=== PATIENT | female | born 1975 | race Caucasian/White ===

== ENCOUNTER 2016-12-15 11:47 | Inpatient (IN) | payer BC ==
[~2016-12-15] VITALS: Ht 154.9 cm; Wt 107.4 kg
[2016-12-15] VITALS (7 sets, daily range): BP systolic 131–144; BP diastolic 79–95; PULSE 68–72; RESP 14–20; TEMP 97.3–98.1; O2SAT 91–95; Ht 154.9 cm; Wt 107.4 kg
[~2016-12-15 11:47] MED LIST: ALBU8.5H INH; ALPR1TAB7 PO; ASPI-557 PO; CYCL30DR BOTH EYES; DULO30CA2 PO; EPIN0.3P3 INJ; FLUT16SP EA NOSTRIL; LORA0.5T2 PO; LOSA50TA52 PO; METF10002 PO; METH10TA4 PO; MYCO500T PO; PANT40TA25 PO; POTA-81 PO; PROC-14 PO; SUMA100T18 PO; THYR60TA PO
--- OUTSIDE RECORDS SUMMARY | 2016-12-15 12:13 | XMS REPORT | Continuity of Care Document ---
Author Author [facility] Organization [facility] Address Unknown Phone Unavailable Support Name Relationship Address Phone RE GARIBAY MD Caregiver [address] [place] [address] Unavailable ATTILA SAVAGE MD Caregiver [address] [place] [address] Unavailable JUSTINO KNOTT Next Of Kin [address] [place] [address] [address] [place] [address] Insurance Providers Guarantor Dominique Knott Address [address] [place] [address] [address] D[address] [place] [address] * Email [email or web address] Payer [facility] Policy Number [id number] Subscriber's Name Justino Knott Relationship 01 Spouse Group Number [id number] Chief Complaint and Reason for Visit Chief Complaint Fall Reason for Visit [id number] Closed head injury [id number] Problems Active Problems Medical Problem Onset Date Status Allergic reaction to drug Unknown Acute Anxiety Unknown Acute Closed head injury Unknown Acute Depression Unknown Acute Elevated blood pressure Unknown Acute Exacerbation of systemic lupus erythematosus Unknown Acute Exacerbation of systemic lupus erythematosus Unknown Acute Headache Unknown Acute Hives Unknown Acute Hypokalemia due to loss of potassium Unknown Acute Left flank pain Unknown Acute Lupus (systemic lupus erythematosus) Unknown Acute Migraine Unknown Acute Migraine Unknown Acute PTSD (post-traumatic stress disorder) Unknown Acute Panic disorder Unknown Acute Pyelonephritis Unknown Acute SLE (systemic lupus erythematosus) Unknown Acute Scalp contusion Unknown Acute Sjogren's syndrome Unknown Acute UTI (urinary tract infection) Unknown Acute Urticaria Unknown Acute Medications Current Home Medications Medication Dose Units Route Directions Days Qty Instructions Start Date Albuterol Sulfate (Proair Hfa 90 Mcg/Actuation) 8.5 Gm Hfa.aer.ad 1 Puff Inhalation Every 4 Hours as needed for Shortness Of Air 08/24/15 Alprazolam 1 Mg Tablet 1 Tab Oral Four Times Daily Prn 240 Aspirin (Aspir 81) 81 Mg Tablet.dr 81 Mg Oral Bedtime 06/19/14 Cyclosporine (Restasis) 1 Each Droperette 1 Drop Both Eyes Every 12 Hours 02/01/16 Duloxetine Hcl (Cymbalta) 30 Mg Capsule 60 Mg Oral Daily 30 Capsule 02/06/16 Epinephrine (Epipen 2-Kaden) 0.3 Mg/0.3 Ml Auto.injct 0.3 Mg Injection As Needed 12/25/15 Fluticasone Propionate (Fluticasone Prop 50 Mcg/Actuation Nasal [place]) 120 [place]/16 G [place] 2 [place] Each Nostril Twice A Day 04/22/15 Lorazepam 0.5 Mg Tablet 0.5-1 Mg Oral Every 4-6 Hours as needed for Anxiety 06/19/14 Losartan Potassium 50 Mg Tablet 50 Mg Oral Twice A Day 12/25/15 Metformin Hcl 1,000 Mg Tablet 1 Tab Oral Twice Daily With Meals Take one tablet, by mouth, twice daily with meals 01/28/16 Methylphenidate Hcl (Ritalin) 10 Mg Tablet 15 Mg Oral Twice A Day 12/25/15 Mycophenolate Mofetil (Cellcept) 500 Mg Tablet 2 Tab Oral Daily 360 Tablet 02/01/16 Mycophenolate Mofetil (Cellcept) 500 Mg Tablet 2 Tab Oral Bedtime 180 Tablet 02/01/16 Pantoprazole Sodium (Protonix) 40 Mg Tablet.dr 40 Mg Oral Daily 08/26/12 Potassium Chloride 20 Meq Tablet.er 30 Meq Oral Daily 30 Tablet Take 1.5 tablet, by mouth, once daily. 02/01/16 Prochlorperazine Maleate (Compazine) 10 Mg Tablet 10 Mg Oral Four Times Daily 30 Tablet 09/04/16 Sumatriptan Succinate 100 Mg Tablet 100 Mg Oral As Needed as needed for Headache 06/19/14 Thyroid ([place] Thyroid) 60 Mg Tablet 60 Mg Oral Daily 08/26/12 Past Home Medications Medication Directions Ordered Status Celecoxib (Celebrex) 200 Mg Capsule, 200 Mg Oral Daily 08/26/12 Discontinued Cetirizine Hcl (Zyrtec) 10 Mg Tablet, 10 Mg Oral Daily 08/26/12 Discontinued Chlorthalidone 50 Mg Tablet, 50 Mg Oral Give With Breakfast 12/25/15 Discontinued Cholecalciferol (Vitamin D3) (Vitamin D3) 2,000 Unit Tablet, 2000 Mg Oral Daily 12/25/15 Discontinued Ciprofloxacin Hcl 500 Mg Tablet, 1 Tab Oral Every 12 Hours 12/25/15 Discontinued Ciprofloxacin/Ciprofloxa Hcl (Ciprofloxacin Er 500 Mg Tablet) 500 Mg Tbmp.24hr , 1 Tab Oral Twice A Day 04/23/15 Discontinued Clindamycin , 200 Mg Oral Three Times A Day 12/25/15 Discontinued Divalproex Sodium (Depakote Er) 500 Mg Tab.sr.24h, 500 Mg Oral Twice A Day Discontinued Duloxetine Hcl (Cymbalta) 30 Mg Capsule, 1 Cap Oral Daily 02/01/16 Discontinued Ergocalciferol (Vitamin D) 400 Unit Capsule, 0 Oral Daily 08/26/12 Discontinued Furosemide (Lasix) 20 Mg Tablet, 1 Tab Oral Daily 01/28/16 Discontinued Hydroxychloroquine Sulfate (Plaquenil) 200 Mg Tablet, 200 Mg Oral Daily 08/26 Discontinued Ketorolac Tromethamine 10 Mg Tablet, 10 Mg Oral Four Times Daily as needed for Pain 06/19/14 Discontinued Levomilnacipran Hydrochloride (Fetzima) 80 Mg Cap.sa.24h, 80 Mg Oral Daily Discontinued Lidocaine Patch , 1 Patch Topically Daily 01/28/16 Discontinued Meloxicam (Mobic) 7.5 Mg Tablet, 7.5 Mg Oral Daily 12/25/15 Discontinued Metformin Hcl (Glucophage) 850 Mg Tablet, 850 Mg Oral Three Times A Day 08/26 Discontinued Metoprolol Succinate 25 Mg Tab.er.24h, 25 Mg Oral Am 12/25/15 Discontinued Metoprolol Succinate 25 Mg Tab.er.24h, 50 Mg Oral Bedtime 12/25/15 Discontinued Montelukast Sodium (Singulair) 10 Mg Tablet, 10 Mg Oral Bedtime 01/28/16 Discontinued Multivitamins With Iron (Daily Vitamin + Iron) 1 Each Tablet, 1 Tab Oral Daily 12/25/15 Discontinued Oxcarbazepine (Trileptal) 300 Mg Tablet, 300 Mg Oral Twice A Day 02/27/13 Discontinued Paroxetine Mesylate (Brisdelle) 7.5 Mg Capsule, 7.5 Mg Oral Bedtime 04/22/15 Discontinued Pilocarpine Hcl 5 Mg Tablet, 1 Tab Oral Three Times A Day as needed for Dry Mouth 12/25/15 Discontinued Prednisone 1 Mg Tablet, 2.5 Mg Oral Daily 09/23/14 Discontinued Progen , 01/24/13 Discontinued Progesterone , Bedtime 01/24/13 Discontinued Sertraline Hcl (Zoloft) 100 Mg Tablet, 200 Mg Oral Bedtime 08/26/12 Discontinued Sertraline Hcl (Zoloft) 100 Mg Tablet, 0.5 Tab Oral Daily 01/23/13 Discontinued Simvastatin 20 Mg Tablet, 20 Mg Oral Bedtime 08/26/12 Discontinued Topiramate (Topamax) 100 Mg Tablet, 100 Mg Oral Daily 08/26/12 Discontinued Tramadol Hcl 50 Mg Tablet, 1-2 Tab Oral Q6h/0300,0900,1500,2100 as needed for Pain 01/28/16 Discontinued Vitamin E 400 Unit Capsule, 400 Unit Oral Daily 01/23/13 Discontinued Vitamin E 100 Unit Capsule, 0 Oral Daily 08/26/12 Discontinued Zonisamide (Zonegran) 100 Mg Capsule, 200 Mg Oral Bedtime 08/26/12 Discontinued Zonisamide (Zonegran) 100 Mg Capsule, 100 Mg Oral Daily 01/23/13 Discontinued Social History Social History Problem Response Recorded Date/Time Onset Date Status Chewing Tobacco Status No 04/18/2014 1:25pm Not Applicable Not Applicable Hx Substance Use No 09/04/2016 12:17am Not Applicable Not Applicable Hx Alcohol Use No 09/04/2016 12:17am Not Applicable Not Applicable Has the pt used tobacco in the last 12 months No 04/07/2016 7:43am Not Applicable Not Applicable Tobacco Usage none 02/02/2016 1:45pm Not Applicable Not Applicable Query Response Start Date Stop Date Smoking Status Unknown if ever smoked Hospital Discharge Instructions No hospital discharge instructions. Plan of Care Discharge Date 09/04/16 2:40am Disposition 01 DISCHARGED HOME, SELF-CARE Condition at Discharge Improved Instructions/Education Provided Closed Head Injury Prescriptions See Medication Section Referrals RE GARIBAY MD Address: [address] [place], [place] [id number] Additional Instructions/Education Compazine 10 mg 4 times daily as needed for migraine headache/nausea/upset stomach Continue using your routine medications at home If symptoms are not improving, or worsen see your primary doctor for recheck later this week Care Plan and Goals Physician Care Plan Problem: Closed head injury after a fall, SLE flare, migraine headache Goal: Follow up with primary care provider Instructions: Take medications and follow care plan as discussed/written Compazine 10 mg 4 times daily as needed for migraine headache/nausea/upset stomach Continue using your routine medications at home If symptoms are not improving, or worsen see your primary doctor for recheck later this week Functional Status No functional status results. Allergies, Adverse Reactions, Alerts Allergen Type Severity Reaction Status Last Updated Penicillin Allergy Intermediate HIVES Active 01/28/16 Egg Derived Allergy Mild headache Active 01/28/16 Cephalexin Allergy Unknown Active 01/28/16 Sulfamethoxazole Allergy Intermediate RASH Active 01/28/16 Trimethoprim Allergy Intermediate RASH Active 01/28/16 Adhesive Allergy Severe Active 01/28/16 Omeprazole Allergy Unknown N/V Active 01/28/16 Immunizations Query Response on File Recorded Date/Time Hx Influenza Vaccination Y JUL 2015 04/07/16 7:43am Hx Pneumococcal Vaccination Y fall 200804/07/16 7:43am Hx Influenza Vaccination Y JUL 2015 04/07/16 7:43am Influenza Vaccine Hx JUL 2015 09/04/16 1:20am Vital Signs Acute Vital Signs Vital Response Date/Time Temperature (Fahrenheit) 97.9 deg F (96.8 - 99.1) 09/04/2016 12:17am Temperature (Calculated Celsius) 36.35368 degrees C (36.0 - 37.3) 09/04/2016 12:17am Pulse Rate (adult) 71 bpm (60 - 100) 09/04/2016 12:17am Respiratory Rate 18 breaths/min (10 - 20) 09/04/2016 12:17am O2 Sat by Pulse Oximetry 95 % (90 - 100) 09/04/2016 12:17am Blood Pressure 171/77 mm Hg 09/04/2016 12:17am Height (Feet) 5 feet 09/04/2016 12:17am Height (Inches) 2.00 inches 09/04/2016 12:17am Weight (Kilograms) 121.200 kg 09/04/2016 12:17am Body Mass Index (BMI) 48.0 09/04/2016 12:17am Results Laboratory Results Test Name Result Units Flags Reference Collection Date/Time Result Date/ Time Comments White Blood Count 10.3 T/MM3 4.5-11.0 08/30/2016 6:22pm 08/30/2016 6: 39pm Red Blood Count 4.00 M/MM3 4.00-5.20 08/30/2016 6:22pm 08/30/2016 6: 39pm Hemoglobin 11.9 GM/DL L 12-16 08/30/2016 6:08/30/2016 6:39pm Hematocrit 37.5 % 36-46 08/30/2016 6:08/30/2016 6:39pm Mean Corpuscular Volume 93.8 UM3 80-100 08/30/2016 6:08/30/2016 6: 39pm Mean Corpuscular Hemoglobin 29.8 UUG 26-34 08/30/2016 6:2015 6:39pm Mean Corpuscular Hemoglobin Concent 31.7 GM/DL 31-37 08/30/2016 6:08/30/2016 6:39pm RDW Standard Deviation 46.5 FL 36.9-50.2 08/30/2016 6:08/30/2016 6 :39pm Platelet Count 379 T/MM3 130-400 08/30/2016 6:08/30/2016 6:39pm Mean Platelet Volume 9.8 UM3 9.4-12.4 08/30/2016 6:08/30/2016 6: 39pm Neutrophils (%) (Auto) 63.6 % 33-66 08/30/2016 6:08/30/2016 6: 39pm Lymphocytes (%) (Auto) 25.2 % 23-45 08/30/2016 6:08/30/2016 6: 39pm Monocytes (%) (Auto) 8.2 % 0-9.0 08/30/2016 6:08/30/2016 6:39pm Eosinophils (%) (Auto) 2.3 % 0-4 08/30/2016 6:08/30/2016 6:39pm Basophils (%) (Auto) 0.4 % 0-2 08/30/2016 6:08/30/2016 6:39pm Immature Granulocyte % (Auto) 0.3 % 0.0-0.5 08/30/2016 6:2015 6:39pm Absolute Neutrophils (auto) 6.5 T/MM3 1.8-7.7 08/30/2016 6:2015 6:39pm Absolute Lymphocytes (auto) 2.6 T/MM3 1-4.8 08/30/2016 6:2015 6:39pm Absolute Monocytes (auto) 0.8 T/MM3 0-0.8 08/30/2016 6:08/30/2016 6:39pm Absolute Eosinophils (auto) 0.2 T/MM3 0-0.5 08/30/2016 6:pm 2015 6:39pm Absolute Basophils (auto) 0.0 T/MM3 0-0.2 08/30/2016 6:08/30/2016 6:39pm Absolute Immature Granulocyte (auto 0.03 T/MM3 0.00-0.03 08/30/2016 6: 08/30/2016 6:39pm Icterus Index < 2 0-7 08/30/2016 6:08/30/2016 6:43pm Chemistry Specimen Hemolysis < 15 0-25 08/30/2016 6:08/30/2016 6 :43pm 0-25: Specimen Exhibited No Hemolysis. Turbidity < 20 0-20 08/30/2016 6:08/30/2016 6:43pm Sodium Level 144 MEQ/L 134-144 08/30/2016 6:08/30/2016 6:43pm Potassium Level 3.8 MEQ/L 3.6-5 08/30/2016 6:08/30/2016 6:43pm Chloride Level 105 MEQ/L 98-107 08/30/2016 6:08/30/2016 6:43pm Carbon Dioxide Level 27 MEQ/L 22-30 08/30/2016 6:08/30/2016 6: 43pm Anion Gap 12 MEQ/L 5-08/30/2016 6:08/30/2016 6:43pm Blood Urea Nitrogen 14.0 MG/DL 7-08/30/2016 6:08/30/2016 6: 43pm Creatinine 0.7 MG/DL 0.7-1.2 08/30/2016 6:08/30/2016 6:43pm BUN/Creatinine Ratio 20 RATIO 6-08/30/2016 6:08/30/2016 6:43pm Glomerular Filtration Rate Calc 91 08/30/2016 6:08/30/2016 6: 43pm Glucose Level 126 MG/DL H 65-110 08/30/2016 6:22pm 08/30/2016 6:43pm Calculated Osmolality 280 MOSM/KG 261-280 08/30/2016 6:22pm 08/30/2016 6:43pm Calcium Level 9.7 MG/DL 8.4-10.2 08/30/2016 6:22pm 08/30/2016 6:43pm Total Bilirubin 1.00 MG/DL 0.20-1.30 08/30/2016 6:22pm 08/30/2016 6: 43pm Alkaline Phosphatase 47 U/L 38-126 08/30/2016 6:pm 08/30/2016 6:43pm Total Protein 7.0 G/DL 6.3-8.2 08/30/2016 6:pm 08/30/2016 6:43pm Albumin 4.4 G/DL 3.5-5.0 08/30/2016 6:pm 08/30/2016 6:43pm Globulin 2.6 G/DL 2.4-3.6 08/30/2016 6:pm 08/30/2016 6:43pm Albumin/Globulin Ratio 1.7 RATIO 1.1-2.2 08/30/2016 6:pm 08/30/2016 6 :43pm Aspartate Amino Transf (AST/SGOT) 81 U/L H 14-36 08/30/2016 6:pm 08/30 6:43pm Alanine Aminotransferase (ALT/SGPT) 136 U/L H 9-52 08/30/2016 6:22pm 6:43pm C-Reactive Protein < 5.0 MG/L 0-9 08/30/2016 6:22pm 08/30/2016 6:43pm Reason Tests Not Done REFERENCE LAB ISSUE 08/31/2016 4:12pm 2015 4:13pm Tests Not Done THIOPURINE METHYLTRA 08/31/2016 4:12pm 08/31/2016 4: 13pm Specimen Comment ([facility]) LAB TO RECOLLECT 08/31/2016 4:12pm 2015 4:13pm Anti-Double Strand DNA Antibody 3 U/mL 0-99 08/30/2016 6:22pm 2015 10:37pm Anti-Nuclear Antibody Interpret see below 08/30/2016 6:22pm 2015 10:37pm <100 U/mL: Negative 100-120 U/mL: Indeterminate >120 U/mL: Positive DS DNA Autoantibody performed at [facility], [address] [place] [address] Caption Writer Marycruz Delatorre DO Complement C3 186 mg/dL H 79-152 08/30/2016 6:22pm 08/31/2016 7:20pm C3 [place] [address] Caption Writer Marycruz Delatorre DO Complement C4 26 mg/dL 18-55 08/30/2016 6:22pm 08/31/2016 7:20pm C4 [place] [address] Caption Writer Marycruz Delatorre DO Erythrocyte Sedimentation Rate 7 mm/h 0-23 08/30/2016 6:22pm 2015 7:13pm Sedimentation Rate performed at [facility], [address] [place] [address] Caption Writer Marycruz Delatorre DO Procedures No known history of procedures. Encounters Encounter Location Arrival/Admit Date Discharge/Depart Date Attending Provider Departed Emergency Room [facility] 09/04/16 12:17am 09/04/16 2: 40am ATTILA SAVAGE MD [facility] 08/30/16 5:53pm LORRI OCHOA Recent Diagnosis
--- OUTSIDE RECORDS SUMMARY | 2016-12-15 12:13 | XMS REPORT | Continuity of Care Document ---
Author Author [facility] Address Unknown Phone Unavailable Allergies Active Description Code Type Severity Reaction Onset Reported/Identified Relationship to Patient Clinical Status Yes PCN Drug Allergy N/A N/A Yes PRILOSEC [id number] Drug Allergy N/A N/A Yes SULFA Drug Allergy N/A N/A Medications Medication Packaging Start Date Stop Date Route Dosage Sig [id number] 01/14/2014 ORAL T.I.D. [id number] 03/31/2014 ORAL three times daily [id number] 11/13/2014 ORAL twice daily [id number] 05/10/2015 ORAL daily Problems Procedures Results Encounters ACCT No. Visit Date/Time Discharge Status Pt. Type Provider Facility Loc./Unit Complaint [id number] 12/06/2016 09:44:08 12/06/2016 09:44:08 DIS Outpatient [id number] 12/04/2016 16:36:13 12/04/2016 16:36:13 DIS Outpatient [id number] 11/09/2016 10:39:07 11/09/2016 10:39:08 DIS Outpatient [id number] 11/07/2016 08:42:09 11/07/2016 08:42:09 DIS Outpatient [id number] 11/06/2016 08:37:24 11/06/2016 08:37:24 DIS Outpatient [id number] 06/06/2016 01:30:06 06/06/2016 01:30:06 ACT Outpatient [id number] 06/06/2016 01:29:11 06/06/2016 01:29:11 ACT Outpatient [id number] 06/06/2016 01:24:33 06/06/2016 01:24:33 ACT Outpatient [id number] 06/06/2016 01:24:30 06/06/2016 01:24:30 ACT Outpatient [id number] 06/06/2016 01:24:28 06/06/2016 01:24:28 ACT Outpatient [id number] 06/06/2016 01:24:01 06/06/2016 01:24:01 ACT Outpatient [id number] 06/06/2016 01:24:00 06/06/2016 01:24:00 ACT Outpatient [id number] 06/06/2016 01:07:19 06/06/2016 01:07:20 ACT Outpatient [id number] 06/05/2016 17:46:42 06/05/2016 17:46:42 ACT Outpatient [id number] 06/05/2016 17:42:46 06/05/2016 17:42:46 ACT Outpatient [id number] 05/27/2015 13:55:22 05/27/2015 13:55:23 DIS Outpatient [id number] 05/27/2015 13:55:03 05/27/2015 13:55:04 DIS Outpatient [id number] 05/27/2015 13:54:22 05/27/2015 13:54:24 DIS Outpatient [id number] 05/27/2015 13:54:15 05/27/2015 13:54:17 DIS Outpatient [id number] 05/11/2015 12:13:48 05/11/2015 23:59:59 CLS Outpatient [id number] 05/10/2015 16:07:14 05/10/2015 16:07:15 DIS Outpatient [id number] 05/10/2015 15:55:29 05/10/2015 15:55:33 DIS Outpatient [id number] 05/10/2015 15:20:44 05/10/2015 15:20:44 DIS Outpatient [id number] 05/10/2015 15:11:39 05/10/2015 15:11:39 DIS Outpatient [id number] 11/09/2016 13:24:28 DIS Outpatient [id number] 11/08/2016 13:21:56 DIS Outpatient [id number] 11/08/2016 12:04:15 DIS Outpatient [id number] 11/08/2016 11:58:00 Document Registration [id number] 11/08/2016 11:56:58 DIS Outpatient [id number] 11/08/2016 11:53:44 DIS Outpatient [id number] 11/08/2016 11:53:43 DIS Outpatient [id number] 11/08/2016 11:53:28 DIS Outpatient [id number] 11/08/2016 11:18:37 DIS Outpatient [id number] 11/06/2016 09:48:51 Document Registration [id number] 11/06/2016 09:15:08 Document Registration [id number] 11/03/2016 16:16:10 DIS Outpatient [id number] 11/03/2016 12:14:52 DIS Outpatient [id number] 11/03/2016 11:12:21 DIS Outpatient [id number] 11/03/2016 10:15:00 Document Registration [id number] 11/03/2016 10:11:43 DIS Outpatient [id number] 11/03/2016 10:01:27 DIS Outpatient [id number] 11/03/2016 10:01:05 DIS Outpatient [id number] 11/03/2016 09:59:39 DIS Outpatient [id number] 11/03/2016 09:59:19 DIS Outpatient [id number] 11/03/2016 09:58:04 DIS Outpatient [id number] 11/02/2016 14:52:07 DIS Outpatient [id number] 11/01/2016 17:54:05 DIS Outpatient [id number] 06/05/2016 17:16:04 Document Registration [id number] 06/05/2016 17:11:00 Document Registration [id number] 05/11/2015 12:20:35 Document Registration [id number] 05/11/2015 10:50:23 Document Registration [id number] 05/11/2015 08:41:15 Document Registration [id number] 05/10/2015 16:07:21 Document Registration [id number] 05/10/2015 16:07:18 Document Registration [id number] 05/10/2015 16:06:40 Document Registration [id number] 05/10/2015 16:06:37 Document Registration [id number] 05/10/2015 16:06:34 Document Registration [id number] 05/10/2015 16:06:31 Document Registration [id number] 05/10/2015 16:06:27 Document Registration [id number] 05/10/2015 16:06:24 Document Registration [id number] 05/10/2015 16:06:20 Document Registration [id number] 05/10/2015 16:06:05 Document Registration [id number] 05/10/2015 16:05:40 Document Registration [id number] 05/10/2015 16:05:15 Document Registration [id number] 05/10/2015 16:05:04 Document Registration [id number] 05/10/2015 16:04:48 Document Registration [id number] 05/10/2015 15:27:00 Document Registration [id number] 05/10/2015 15:26:00 Document Registration [id number] 11/13/2014 12:48:25 Document Registration [id number] 11/13/2014 08:25:56 Document Registration
--- OUTSIDE RECORDS SUMMARY | 2016-12-15 12:13 | XMS REPORT | Continuity of Care Document ---
Author Author [facility] Organization [facility] Address Unknown Phone Unavailable Support Name Relationship Address Phone RE GARIBAY MD Caregiver [address] [place] [address] SANTY GOLD MD Caregiver [facility] [address] [place] [address] [phone] JUSTINO KNOTT Next Of Kin [address] [place] [address] [address] [place] [address] Insurance Providers Payer Name Policy Number Subscriber Name Relationship [facility] [id number] Justino Knott 01 Spouse Advance Directives Directive Response Recorded Date/Time Dr Medina Resuscitation Status Full Code 06/19/14 7:28am Resuscitation Documents on File No 06/19/14 8:33am Problems Medical Problems Problem Onset Date Status Migraine Unknown Active Elevated blood pressure Unknown Active Migraine Unknown Active Medications Medication Dose Route Sig Days/Qty Instructions Order Date Discontinued Date Status Topiramate 100 Mg PO DAILY 08/26/12 01/23/13 Discontinued Zonisamide 200 Mg PO BEDTIME 08/26/12 02/27/13 Discontinued Sertraline Hcl 200 Mg PO BEDTIME 08/26/12 12/03/13 Discontinued Simvastatin 20 Mg PO BEDTIME 08/26/12 09/06/12 Discontinued Duloxetine Hcl 60 Mg PO DAILY 08/26/12 Active Metformin Hcl 850 Mg PO THREE TIMES A DAY 08/26/12 06/30/13 Discontinued Celecoxib 200 Mg PO DAILY 08/26/12 09/06/12 Discontinued Hydroxychloroquine Sulfate 200 Mg PO DAILY 3 tabs, equals 600mg daily 08/26/12 01/23/13 Discontinued Thyroid 75 Mg PO DAILY 08/26/12 Active Vitamin E 0 PO DAILY 08/26/12 09/06/12 Discontinued Ergocalciferol 0 PO DAILY 08/26/12 09/06/12 Discontinued Hydrocodone Bit/Acetaminophen 1 Udtab PO NEEDED 08/26/12 Active Cetirizine Hcl 10 Mg PO DAILY 08/26/12 09/06/12 Discontinued Pantoprazole Sodium 40 Mg PO TWICE A DAY 08/26/12 Active Sertraline Hcl 0.5 Tab PO DAILY 01/23/13 12/03/13 Discontinued Zonisamide 100 Mg PO DAILY 01/23/13 02/27/13 Discontinued Ondansetron Hcl 4 Mg PO Every 8 Hours 01/23/13 Active Vitamin E 400 Unit PO DAILY 01/23/13 06/30/13 Discontinued Prednisone 5 Mg PO DAILY 01/23/13 Active Orphenadrine Citrate 100 Mg PO BID PRN 01/23/13 Active Celecoxib 200 Mg PO BEDTIME 01/23/13 Active [Progen] 01/24/13 01/24/13 Discontinued [Progesterone] BEDTIME 01/24/13 02/27/13 Discontinued Oxcarbazepine 300 Mg PO TWICE A DAY 02/27/13 06/30/13 Discontinued Divalproex Sodium 500 Mg PO TWICE A DAY 06/30/13 12/03/13 Discontinued Verapamil Hcl 80 Mg PO THREE TIMES A DAY 12/03/13 Active Metformin Hcl 850 Mg PO THREE TIMES A DAY 12/03/13 Active [Fetzima] 80 Mg DAILY 04/18/14 Active Lisinopril/Hydrochlorothiazide 20-25 Mg PO DAILY 06/19/14 Active Cetirizine HCl 1-2 Cap PO DAILY PRN ALLERY SYMPTOMS 06/19/14 Active Niacin 1,000 Mg PO BEDTIME 06/19/14 Active Aspirin 1 Tab PO BEDTIME 06/19/14 Active Estradiol 0.1 Mg TD TWICE A WEEK 06/19/14 Active Progesterone 0.1 Mg PO TWICE A DAY 06/19/14 Active Cholecalciferol (Vitamin D3) 2,000 Unit PO BEDTIME 06/19/14 Active Lorazepam 0.5-1 Mg PO EVERY 4-6 HOURS PRN ANXIETY 06/19/14 Active Sumatriptan Succinate 100 Mg PO For HEADACHE 06/19/14 Active Ketorolac Tromethamine 1 Tab PO FOUR TIMES DAILY PRN PAIN 06/19/14 Active Social History Social History Problem Response Recorded Date/Time Smoking Status Unknown if ever smoked 04/18/2014 1:25pm Chewing Tobacco Status No 04/18/2014 1:25pm Hx Substance Use No 06/19/2014 10:24am Hx Alcohol Use No 06/19/2014 10:24am Has the pt used tobacco in the last 12 months No 06/19/2014 10:24am Query Response Start Date Stop Date Smoking Status Never smoker Hospital Discharge Instructions No hospital discharge instructions. Plan of Care No plan of care. Functional Status Query Response Date Recorded Physical Hygiene Self April 18, 2014 1:25pm Ambulation Self April 18, 2014 1:25pm Mental Status Alert April 18, 2014 3:29pm Physical Hygiene Self April 18, 2014 1:25pm Ambulation Self April 18, 2014 1:25pm Allergies, Adverse Reactions, Alerts Allergen Type Severity Reaction Status Last Updated Penicillin Allergy Intermediate HIVES Active 06/19/14 Egg Derived Allergy Mild headache Active 06/19/14 Adhesive Allergy Severe Active 06/19/14 Omeprazole Allergy Unknown N/V Active 06/19/14 Immunizations Name Given Type Hx Influenza Vaccination Y JUL 2013 Historical Hx Pneumococcal Vaccination Y 2008 Historical Hx Influenza Vaccination Y JUL 2013 Historical Vital Signs Acute Vital Signs Vital Response Date/Time Temperature (Fahrenheit) 97.6 deg F (96.8 - 99.1) Temperature (Calculated Celsius) 36.24268 degrees C (36.0 - 37.3) Temperature Source Oral Pulse Rate (adult) 88 bpm (60 - 100) Respiratory Rate 16 breaths/min (10 - 20) O2 Sat by Pulse Oximetry 98 % (90 - 100) Oxygen Delivery Method Room Air Blood Pressure 118/69 mm Hg Blood Pressure Source Automatic Cuff Height 5 ft 2 in Weight 259 lb Body Mass Index 47.0 kg/m^2 Results Test Source Date Result Interp. Ref. Range Comments Prothromb Time International Ratio June 19, 2014 8:48am 0.89 N 0.81 -1.09 THERAPUTIC RANGE=2.00-3.00 FOR ANTI-THROMBOSIS THERAPUTIC RANGE=2.50- 3.50 FOR IMPLANTED VALVE Absolute Reticulocyte Count March 20, 2014 11:40am 0.1266 T/MM3 H 0.0300- 0.0900 Alanine Aminotransferase (ALT/SGPT) April 18, 2014 1:25pm 206 U/L H 9-52 Albumin April 18, 2014 1:25pm 4.2 G/DL N 3.5-5.0 Albumin/Globulin Ratio April 18, 2014 1:25pm 1.8 RATIO N 1.1-2.2 Alkaline Phosphatase April 18, 2014 1:25pm 71 U/L N 38-126 [id number] March 20, 2014 11:40am 131 mg/dL - Reference Range :100 - 190 Test Performed by: [place] [address] Foreign Correspondent: Saqib Benson III, M.D. [id number]-[id number] [place] [address] [employer]ded Firmware Engineer Marcelino Sanchez MD Anion Gap April 18, 2014 1:25pm 13 MEQ/L N 5-15 Anti-Double Strand DNA Antibody September 06, 2012 10:08pm Ref lab rpt scanned - --- 09/10/12 0703 ---ANTIDS previously reported as: SENT OUT Anti-Smooth Muscle Antibody March 20, 2014 11:40am Negative - Test Performed by:[place] [address] Foreign Correspondent: Saqib Benson III, M.D. Anti-Smooth Muscle [place] [address] [employer]ded Firmware Engineer Marcelino Sanchez MD Aspartate Amino Transf (AST/SGOT) April 18, 2014 1:25pm 148 U/L H 14-36 BUN/Creatinine Ratio April 18, 2014 1:25pm 25 RATIO N 6-26 Band Neutrophils # September 06, 2012 10:08pm 0.4 T/MM3 - Band Neutrophils % September 06, 2012 10:08pm 2.0 % N 0-6 Basophils # (Auto) April 18, 2014 1:25pm 0.0 T/MM3 N 0-0.2 Basophils (%) (Auto) April 18, 2014 1:25pm 0.4 % N 0-2 Blood Urea Nitrogen April 18, 2014 1:25pm 15.0 MG/DL N 7-17 C-Reactive Protein April 18, 2014 1:25pm 5.7 MG/L N 0-9 CSF Color December 03, 2013 2:40pm Colorless - CSF Glucose December 03, 2013 2:40pm 62 MG/DL N 40-70 CSF Lymphocytes December 03, 2013 2:40pm 90 % - CSF Monocytes December 03, 2013 2:40pm 5 % - CSF Neutrophils December 03, 2013 2:40pm 5 % - CSF RBC December 03, 2013 2:40pm 16 /MM3 H 0-0 CSF Total Nucleated Cell Count December 03, 2013 2:40pm 4 /MM3 N 0-5 CSF Total Protein December 03, 2013 2:40pm 11 MG/DL L 12-60 CSF Turbidity December 03, 2013 2:40pm Clear - Calcium Level April 18, 2014 1:25pm 9.2 MG/DL N 8.4-10.2 Calculated Osmolality April 18, 2014 1:25pm 271 MOSM/KG N 261-280 Carbon Dioxide Level April 18, 2014 1:25pm 23 MEQ/L N 22-30 Ceruloplasmin March 20, 2014 11:40am 23.5 mg/dL - Reference Range: 16.0 - 45.0 Test Performed by: [place] [address] Foreign Correspondent: Saqib Benson III, M.D. Ceruloplasmin, S performed at [facility], [address] [place] [address] Embedded Firmware Engineer Marcelino Sanchez MD Chemistry Specimen Hemolysis April 18, 2014 1:25pm < 15 0-25 0-25: No Hemolysis.26-70: Slight Hemolysis - can falsely elevate K and Urine Protein. 71-285: Moderate Hemolysis - can falsely elevate K, Troponin I, CA 19-9, PTH, CSF GLucose, and Urine Protein, and can falsely decrease Phenytoin. 286-999: Gross Hemolysis - can falsely elevate K, Troponin I, CA 19-9, PTH, CSF Glucose, and Urine Protine, and can falsely decrease Phenytoin. Recommend specimen recollection. Chloride Level April 18, 2014 1:25pm 104 MEQ/L N 98-107 Cholesterol Level May 13, 2010 6:24am 224 MG/DL H 132-199 Cholesterol/HDL Ratio May 13, 2010 6:24am 4.5 RATIO H 0-4.0 Creatinine April 18, 2014 1:25pm 0.6 MG/DL L 0.7-1.2 D-Dimer June 09, 2011 2:34pm 152 NG/ML N 0-230 <224 NG/ML= PRESUMPTIVE NEGATIVE FOR PE OR DVT>224 NG/ML=ADDITIONAL EVALUATION FOR PE OR DVT RECOMMENDED Eosinophils # (Auto) April 18, 2014 1:25pm 0.4 T/MM3 N 0-0.5 Eosinophils (%) (Auto) April 18, 2014 1:25pm 4.2 % H 0-4 Erythrocyte Sedimentation Rate April 18, 2014 1:25pm 6 MM/HR N 0-20 Ferritin June 10, 2014 9:01am 27.7 NG/ML N 6-137 Follicle Stimulating Hormone May 13, 2010 6:24am 13.4 MIU/ML - Male : 1.0 - 42.5 Vince/mLFemale Ovulating: Follicular Phase: 2.7 - 15.4 mIU/mL, Peak: 3.9 - 22.0 Vince/mL, Luteal phase: 1.0 - 14.4 mIU/mL, Postmenopausal: 25.0 - 160.0 mIU/mL Free Thyroxine April 29, 2009 4:34pm 0.99 NG/DL N 0.78-2.[address] GARIBAY [id number] Free Triiodothyronine April 29, 2009 4:34pm 3.84 PG/ML N 2.77-5.[address] GARIBAY [id number] Globulin April 18, 2014 1:25pm 2.4 G/DL N 2.4-3.6 Glomerular Filtration Rate Calc April 18, 2014 1:25pm 111 - Glucometer December 05, 2013 10:34am 82 mg/dL N 65-110 Glucose 1 Hour April 09, 2008 9:45am 3600 70 - Glucose 2 Hour April 09, 2008 9:45am 7200 76 - Glucose Level April 18, 2014 1:25pm 116 MG/DL H 65-110 HDL Cholesterol Direct May 13, 2010 6:24am 50 MG/DL N 40-60 Helicobacter pylori Antibodies September 08, 2012 5:15am Negative - Hematocrit April 18, 2014 1:25pm 39.9 % N 36-46 Hemoglobin April 18, 2014 1:25pm 13.2 GM/DL N 12-16 Hepatitis A IgM Antibody March 20, 2014 11:40am Negative - Hepatitis B Core IgM Antibody March 20, 2014 11:40am Negative - Hepatitis B Surface Ab Concentrat March 20, 2014 11:40am Negative - Hepatitis B Surface Antigen March 20, 2014 11:40am Negative - Hepatitis C Antibody March 20, 2014 11:40am Negative - Human Chorionic Gonadotropin, Qual February 28, 2013 6:10am Negative - COMMENT TO SCU AT 0530 Icterus Index April 18, 2014 1:25pm < 2 0-7 Immature Granulocyte # (Auto) April 18, 2014 1:25pm 0.03 T/MM3 N 0.00- 0.03 Immature Granulocyte % (Auto) April 18, 2014 1:25pm 0.3 % N 0.0-0.5 Immature Reticulocyte Fraction March 20, 2014 11:40am 11.7 % N 3.3-14.5 Iron Level June 10, 2014 9:01am 112 UG/DL N 37-170 LDL Cholesterol, Calculated May 13, 2010 6:24am 132.8 N 66-159 Lab Scanned Report June 18, 2014 8:44pm LAB TEST FORM REQUEST - Luteinizing Hormone May 13, 2010 6:24am 4.3 MIU/ML - Male: 1.7 - 11.2 mIU/mLFemale Ovulating: Follicular Phase: 1.7 - 13.3 mIU/mL, Peak: 4.1 - 68.7 mIU/mL, Luteal phase: 0.5 - 19.8 mIU/mL, Postmenopausal: 14.4 - 62.2 mIU/mL Lymphocytes # (Auto) April 18, 2014 1:25pm 1.3 T/MM3 N 1-4.8 Lymphocytes # (Manual) September 13, 2012 5:20am 5.8 T/MM3 H 1-4.8 Lymphocytes % (Manual) September 13, 2012 5:20am 28.0 % N 23-45 Lymphocytes (%) (Auto) April 18, 2014 1:25pm 14.4 % L 23-45 Magnesium Level September 14, 2012 9:05am 2.3 MG/DL N 1.6-2.3 Mean Corpuscular Hemoglobin April 18, 2014 1:25pm 30.9 UUG N 26-34 Mean Corpuscular Hemoglobin Concent April 18, 2014 1:25pm 33.1 GM/DL N 31 -37 Mean Corpuscular Volume April 18, 2014 1:25pm 93.4 UM3 N 80-100 Mean Platelet Volume April 18, 2014 1:25pm 10.0 UM3 N 9.4-12.4 Metamyelocytes # September 11, 2012 4:45am 0.3 T/MM3 - Metamyelocytes % September 11, 2012 4:45am 2.0 % H 0-0 Monocytes # (Auto) April 18, 2014 1:25pm 0.8 T/MM3 N 0-0.8 Monocytes # (Manual) September 13, 2012 5:20am 0.8 T/MM3 N 0-0.8 Monocytes % (Manual) September 13, 2012 5:20am 4.0 % N 0-9.0 Monocytes (%) (Auto) April 18, 2014 1:25pm 9.3 % H 0-9.0 Myelocytes # September 11, 2012 4:45am 0.2 T/MM3 - Myelocytes % September 11, 2012 4:45am 1.0 % H 0-0 Neutrophils # (Auto) April 18, 2014 1:25pm 6.4 T/MM3 N 1.8-7.7 Neutrophils # (Manual) September 13, 2012 5:20am 14.1 T/MM3 H 1.8-7.7 Neutrophils % (Manual) September 13, 2012 5:20am 68.0 % H 33-66 Neutrophils (%) (Auto) April 18, 2014 1:25pm 71.4 % H 33-66 Percent Iron Saturation June 10, 2014 9:01am 29 % N 9-55 Percent Reticulocyte Count March 20, 2014 11:40am 2.9 % H 0.6-1.7 Platelet Count June 19, 2014 8:48am 374 T/MM3 N 130-400 COMMENT WILL CALL WHEN HERE Potassium Level April 18, 2014 1:25pm 3.5 MEQ/L L 3.6-5 Prolactin May 13, 2010 6:24am 8.4 NG/ML - Male: 3.3 - 20.8 ng/ mLFemale: Premenopausal: 2.1 - 47.6 ng/mL, Postmenopausal: 0 - 41.4 ng/mL RDW Standard Deviation April 18, 2014 1:25pm 45.1 FL N 36.9-50.2 Reactive Lymphocytes # September 11, 2012 4:45am 0.5 T/MM3 H 0-0 Reactive Lymphocytes % September 11, 2012 4:45am 3.0 % H 0-0 Red Blood Count April 18, 2014 1:25pm 4.27 M/MM3 N 4.00-5.20 Reticulocyte Hgb Content (CHr) March 20, 2014 11:40am 37.0 PG H 30.8- 36.6 Sodium Level April 18, 2014 1:25pm 140 MEQ/L N 134-144 Thyroid Stimulating Hormone (TSH) December 03, 2013 5:05pm 0.92 MIU/L N 0.47-4.68 Total Bilirubin April 18, 2014 1:25pm 0.70 MG/DL N 0.20-1.30 Total Iron Binding Capacity June 10, 2014 9:01am 390 UG/DL N 261-497 Total Protein April 18, 2014 1:25pm 6.6 G/DL N 6.3-8.2 Triglycerides Level May 13, 2010 6:24am 206 MG/DL H 35-135 Turbidity April 18, 2014 1:25pm 41 H 0-20 0-21: Turbidity not present.22 -999: Turbidity present - Gross turbidity can falsely decrease Lipase and Triglycerides. Urinalysis Comment June 30, 2013 5:50pm Microscopic not ind. - Has specimen been collected/obtained? Y Urine Bacteria April 18, 2014 2:04pm 1+ H - Has specimen been collected/ obtained? Y Urine Bilirubin April 18, 2014 2:04pm Negative - Has specimen been collected/obtained? Y Urine Blood April 18, 2014 2:04pm 1+ H - Has specimen been collected/ obtained? Y Urine Collection Type April 18, 2014 2:04pm Voided-not cc-midstr - Has specimen been collected/obtained? Y Urine Color April 18, 2014 2:04pm Yellow - Has specimen been collected /obtained? Y Urine Culture Indicated April 18, 2014 2:04pm Cult not indicated - Has specimen been collected/obtained? Y Urine Glucose (UA) April 18, 2014 2:04pm Negative - Has specimen been collected/obtained? Y Urine Glucose 1 Hour April 09, 2008 9:45am 3600 Negative - Urine Glucose 2 Hour April 09, 2008 9:45am 7200 Negative - Urine Ketones April 18, 2014 2:04pm Negative - Has specimen been collected/obtained? Y Urine Leukocyte Esterase April 18, 2014 2:04pm Negative - Has specimen been collected/obtained? Y Urine Microscopic Not Indicated September 07, 2012 1:48am Not indicated - Has specimen been collected/obtained? Y Urine Mucus April 18, 2014 2:04pm Present - Has specimen been collected/obtained? Y Urine Nitrite April 18, 2014 2:04pm Negative - Has specimen been collected/obtained? Y Urine Test January 24, 2013 11:20am Negative - Has specimen been collected/obtained? YCOMMENT RUN HERB PLEASE.THANKS Urine Protein April 18, 2014 2:04pm 1+ H - Has specimen been collected/ obtained? Y Urine RBC April 18, 2014 2:04pm 1-3 /HPF - Has specimen been collected /obtained? Y Urine Specific [place] April 18, 2014 2:04pm 1.025 - Has specimen been collected/obtained? Y Urine Squamous Epithelial Cells April 18, 2014 2:04pm 5-10 - Has specimen been collected/obtained? Y Urine Turbidity April 18, 2014 2:04pm Clear - Has specimen been collected/obtained? Y Urine Urobilinogen April 18, 2014 2:04pm 0.2 EU/DL - Has specimen been collected/obtained? Y Urine WBC April 18, 2014 2:04pm 0-1 /HPF - Has specimen been collected /obtained? Y Urine pH April 18, 2014 2:04pm 5.0 - Has specimen been collected/ obtained? Y VLDL Cholesterol May 13, 2010 6:24am 41.2 MG/DL H 0-28 Vitamin D 25-Hydroxy May 13, 2010 6:24am Send out - White Blood Count April 18, 2014 1:25pm 9.0 T/MM3 N 4.5-11.0 Blood Culture Blood September 06, 2012 10:08pm NO GROWTH AFTER 5 DAYS Gram Stain Cerebral Spinal Fluid December 03, 2013 5:00pm Viral Culture Csf December 04, 2013 2:40pm Name: TG KNOTT Unit #: [id number] : 1975 Sex: F Loc / Svc: SRG DOS: 06/19/14 Signed Report #: [id number] DIAGNOSTIC IMAGING REPORT TYPE OF EXAM: US GUIDED NEEDLE BX Dictated By: SANTY GOLD MD ULTRASOUND-GUIDED LIVER BIOPSY: MONITORED IV SEDATION: The patient was given 2 mg of Versed and 50 mcg of fentanyl IV. This was administered by the dental laboratory supervisor nurse. The dental laboratory supervisor nurse did continuous monitoring during the procedure in radiology and also after the procedure in her recovery room. Monitoring consisted of heart rate, pulse oximetry, and blood pressure. There is no complication. After discussing the details of the procedure, including the risks, the patient wished to proceed. Informed consent was then obtained. A preprocedural pause was performed to confirm the correct patient and procedure. Sedation was administered as noted above. Then, using aseptic technique, local lidocaine anesthetic, and ultrasound guidance, an 18-gauge biopsy needle was directed to the left lobe of the liver via an anterior approach. Three 22 mm throw passes with a biopsy needle were obtained and the samples were sent to lab for the requested studies. The procedure was completed without complication. Following this, hemostasis was obtained and the patient was taken to the recovery room for observation. The patient tolerated this procedure well. Impression: Technically successful ultrasound guided left lobe liver biopsy. Santy Hoyos RPA/ performed this under my personal supervision. . Procedures Procedure Status Date Provider(s) THER/PROPH/DIAG INJ IV PUSH completed 04/18/14 TX/PRO/DX INJ NEW DRUG ADDON completed 04/18/14 TX/PRO/DX INJ NEW DRUG ADDON completed 04/18/14 TX/PRO/DX INJ SAME DRUG ELECTRIC BLASTING CAP ASSEMBLER completed 04/18/14 TX/PRO/DX INJ NEW DRUG ADDON completed 04/18/14 HYDRATE IV INFUSION ADD-ON completed 04/18/14 Encounters Encounter Location Date/Time Departed [facility] 06/19/14 7:57am Registered [facility] 06/18/14 12:25pm Registered [facility] 06/10/14 8:53am Registered [facility] 05/18/14 4:17pm Departed Emergency Room [facility] 04/18/14 12:37pm
--- OUTSIDE RECORDS SUMMARY | 2016-12-15 12:14 | XMS REPORT | Continuity of Care Document ---
Author Author [facility] Organization [facility] Address Unknown Phone Unavailable Support Name Relationship Address Phone RE GARIBAY MD Caregiver [address] [place] [address] SARTHAK VALENZUELA MD Caregiver [address] [place] [address] [place] [phone] JUSTINO KNOTT Next Of Kin [address] [place] [address] [address] [place] [address] Insurance Providers Payer Name Policy Number Subscriber Name Relationship [facility] [id number] Justino Knott 01 Spouse Advance Directives Directive Response Recorded Date/Time Advanced Directives Type None 09/23/14 4:06am Ordered Resuscitation Status Full Code 09/23/14 3:40am Resuscitation Documents on File No 09/23/14 4:22am Chief Complaint and Reason for Visit Chief Complaint PYLONEPHRITIS,LEFT FLANK PAIN, NASEA, DEHYDRATION Reason for Visit Exacerbation of systemic lupus erythematosus Pyelonephritis Left flank pain Exacerbation of systemic lupus erythematosus Problems Medical Problems Problem Onset Date Status Migraine Unknown Active Elevated blood pressure Unknown Active Migraine Unknown Active Exacerbation of systemic lupus erythematosus Unknown Active Pyelonephritis Unknown Active Left flank pain Unknown Active Exacerbation of systemic lupus erythematosus Unknown Active Medications Medication Dose Route Sig [...] 400 Unit PO DAILY 01/23/13 06/30/13 Discontinued Orphenadrine Citrate 100 Mg PO BID PRN [...] Active [Fetzima] 80 Mg DAILY 04/18/14 Active Cetirizine HCl 1-2 Cap PO DAILY [...] FOUR TIMES DAILY PRN PAIN 06/19/14 Active Prednisone 2 Mg PO DAILY 09/23/14 Active Labetalol HCl 1 Tab PO TWICE A DAY 09/23/14 Active Mycophenolate Mofetil 250 Mg PO DAILY 09/23/14 Active Phenazopyridine HCl 200 Mg PO THREE TIMES A DAY Take 1 tab, by mouth, 3 times a day AFTER meals. 09/23/14 Active Social History Social History Problem Response Recorded Date/Time Chewing Tobacco Status No 04/18/2014 1:25pm Hx Substance Use No 09/23/2014 12:00am Hx Alcohol Use No 09/23/2014 12:00am Has the pt used tobacco in the last 12 months No 09/23/2014 4:25am Tobacco Usage none 04/18/2014 1:48pm Query Response Start Date Stop Date Smoking Status Unknown if ever smoked Hospital Discharge Instructions Instructions: Care Instructions: Reason for Hospitalization: PYELONEPHRITIS, LEFT FLANK PAIN I was in the hospital because (patient own words): PAIN, LUPUS FLARE AND A UTI Discharge Diet: regular Discharge Activity: as tolerated Follow Up Appointments: FOLLOW UP IN ONE WEEK ON September AT 9:[address] GARIBAY Condition at time of discharge: Good Congenital Heart Disease Screening Result: Pass REPORTS HAS A WALKER FROM [facility] Notify Physician If: fever greater than 101, chest pain, shortness of breath, or calf pain Condition at time of discharge: Good 1. Call your surgeon if you are having problems relating to your surgery at [phone]. 2. Problems such as: Temp above 101.5 degrees You develop redness, excessive swelling of the incision, increasing pain or excessive foul smelling drainage. 3. If the office is closed, call [facility] at [phone] and have your Surgeon paged. Condition at time of discharge: Good rate >100, confusion, or persistent nausea/vomitting. 2.Severe pain, swelling, redness, or warmth in either of your legs. 3.During office hours, call [phone] 4. After hours, please call [facility] at [phone], and have the centrifuge operator page your Surgeon IN THE EVENT OF AN EMERGENCY, seek medical care at the nearest Emergency Room Condition at time of discharge: Good Plan of Care Discharge Date 09/24/14 12:40pm Disposition 01 DISCHARGED HOME, SELF-CARE Instructions/Education Provided DI for Dehydration -- Adult DI for Urinary Tract Infection (UTI) Prescriptions See Medications Section Functional Status Query Response Date Recorded Physical Hygiene Self September 24, 2014 11:35am Disabilities Visual September 24, 2014 11:35am Devices Used Glasses September 24, 2014 11:35am Dressing Self September 24, 2014 11:35am Ambulation Self April 18, 2014 1:25pm Diet Self September 24, 2014 11:35am Mental Status Alert April 18, 2014 3:29pm Disabilities Visual September 24, 2014 11:35am Devices Used Glasses September 24, 2014 11:35am Physical Hygiene Self September 24, 2014 11:35am Dressing Self September 24, 2014 11:35am Ambulation Self April 18, 2014 1:25pm Diet Self September 24, 2014 11:35am Allergies, Adverse Reactions, Alerts Allergen Type Severity Reaction Status Last Updated Penicillin Allergy Intermediate HIVES Active 09/22/14 Egg Derived Allergy Mild headache Active 09/22/14 Adhesive Allergy Severe Active 09/22/14 Omeprazole Allergy Unknown N/V Active 09/22/14 Immunizations Name Given Type Hx Influenza Vaccination Y JUL 2014 Historical Hx Pneumococcal Vaccination Y 2008 Historical Hx Influenza Vaccination Y JUL 2014 Historical Vital Signs Acute Vital Signs Vital Response Date/Time Temperature (Fahrenheit) 97.7 deg F (96.8 - 99.1) Temperature (Calculated Celsius) 36.34760 degrees C (36.0 - 37.3) Temperature Source Temporal Pulse Rate (adult) 89 bpm (60 - 100) Respiratory Rate 16 breaths/min (10 - 20) Height 5 ft 1 in Weight 261 lb Body Mass Index 49.0 kg/m^2 Results Test Source Date Result Interp. Ref. Range Comments Absolute Reticulocyte Count March 20, 2014 11:40am 0.1266 T/MM3 H 0.0300- 0.0900 Alanine Aminotransferase (ALT/SGPT) September 24, 2014 5:19am 196 U/L H 9 -52 Albumin September 24, 2014 5:19am 3.8 G/DL N 3.5-5.0 Albumin/Globulin Ratio September 24, 2014 5:19am 1.6 RATIO N 1.1-2.2 Alkaline Phosphatase September 24, 2014 5:19am 43 U/L N 38-126 [id number]-Iozxttjzyfa March 20, 2014 11:40am 131 mg/dL - Reference Range :100 - 190 Test Performed by: [address] [place] [address] Director Pediatric: Saqib Benson III, M.D. [id number] [place] [address] Care Professional Marcelino Sanchez MD Amylase Level September 23, 2014 12:20am 62 U/L N 30-110 Anion Gap September 24, 2014 5:19am 7 MEQ/L N 5-15 Anti-Double Strand DNA Antibody September 22, 2014 1:10pm 0 U/mL - Anti-Mitochondrial Antibody June 18, 2014 12:32pm <0.1 U - Reference Range:<0.1 (Negative) Test Performed by: [place] [address] Director Pediatric: Saqib Benson III, M.D. Mitochondrial Ab, M2 [place] [address] Care Professional Marcelino Sanchez MD Anti-Nuclear Antibody Interpret September 22, 2014 1:10pm see below - <100 U/mL: [id number] U/mL: Indeterminate >120 U/mL: Positive DS DNA Autoantibody performed at [facility] Reference Lab, [address] [place] [address] Care Professional Michael Sanchez MD Anti-Smooth Muscle Antibody March 20, 2014 11:40am Negative - Test Performed by:[place] [address] Director Pediatric: Saqib Benson III, M.D. Anti-Smooth Muscle [place] [address] Care Professional Marcelino Sanchez MD Aspartate Amino Transf (AST/SGOT) September 24, 2014 5:19am 157 U/L H 14- 36 BUN/Creatinine Ratio September 24, 2014 5:19am 17 RATIO N 6-26 Band Neutrophils # 2014 4:34pm 0.4 T/MM3 - Band Neutrophils % 2014 4:34pm 3.0 % N 0-6 Basophils # (Auto) September 24, 2014 5:19am 0.1 T/MM3 N 0-0.2 Basophils (%) (Auto) September 24, 2014 5:19am 0.9 % N 0-2 Blood Urea Nitrogen September 24, 2014 5:19am 10.0 MG/DL DN 7-17 C-Reactive Protein April 18, 2014 1:25pm [...] 03, 2013 2:40pm Clear - Calcium Level September 24, 2014 5:19am 9.0 MG/DL DN 8.4-10.2 Calculated Osmolality September 24, 2014 5:19am 271 MOSM/KG N 261-280 Carbon Dioxide Level September 24, 2014 5:19am 26 MEQ/L N 22-30 Ceruloplasmin March 20, 2014 11:40am 23.5 mg/dL - Reference Range: 16.0 - 45.0 Test Performed by: [place] [address] Director Pediatric: Saqib Benson III, M.D. Ceruloplasmin, S performed at [facility], [address] [place] [address] Care Professional Marcelino Sanchez MD Chemistry Specimen Hemolysis September 24, 2014 5:19am 24 N 0-25 0-25: No Hemolysis.26-70: Slight Hemolysis - [...] decrease Phenytoin. Recommend specimen recollection. Chloride Level September 24, 2014 5:19am 109 MEQ/L H 98-107 Cholesterol Level May 13, 2010 6:24am 224 MG/DL H 132-199 Cholesterol/HDL Ratio May 13, 2010 6:24am 4.5 RATIO H 0-4.0 Complement C3 September 22, 2014 1:10pm 212 mg/dL H - C3 [place] [address] Care Professional Michael Sanchez MD Complement C4 September 22, 2014 1:10pm 29 mg/dL - C4 [place] [address] Care Professional Michael Sanchez MD Creatinine September 24, 2014 5:19am 0.6 MG/DL DL 0.7-1.2 D-Dimer 2014 4:34pm < 150 NG/ML 0-224 <224 NG/ML= PRESUMPTIVE NEGATIVE FOR PE OR DVT>224 NG/ML=ADDITIONAL EVALUATION FOR PE OR DVT RECOMMENDED Eosinophils # (Auto) September 24, 2014 5:19am 0.1 T/MM3 N 0-0.5 Eosinophils # (Manual) 2014 4:34pm 0.1 T/MM3 N 0-0.5 Eosinophils % (Manual) 2014 4:34pm 1.0 % N 0-4 Eosinophils (%) (Auto) September 24, 2014 5:19am 1.3 % N 0-4 Erythrocyte Sedimentation Rate April 18, 2014 [...] N 0.78-2.[address] GARIBAY [id number] Free Triiodothyronine April 29, 2009 4:34pm 3.84 PG/ML N 2.77-5.[address] GARIBAY [id number] Globulin September 24, 2014 5:19am 2.4 G/DL N 2.4-3.6 Glomerular Filtration Rate Calc September 24, 2014 5:19am 110 - Glucometer December 05, 2013 10:34am 82 mg/dL N 65-110 Glucose 1 Hour April 09, 2008 9:45am 3600 70 - Glucose 2 Hour April 09, 2008 9:45am 7200 76 - Glucose Level September 24, 2014 5:19am 89 MG/DL N 65-110 HDL Cholesterol Direct May 13, 2010 6:24am 50 MG/DL N 40-60 Helicobacter pylori Antibodies September 08, 2012 5:15am Negative - Hematocrit September 24, 2014 5:19am 32.8 % DL 36-46 Hemoglobin September 24, 2014 5:19am 10.4 GM/DL DL 12-16 Hepatitis A IgM Antibody March 20, [...] COMMENT TO SCU AT 0530 Icterus Index September 24, 2014 5:19am < 2 0-7 Immature Granulocyte # (Auto) September 24, 2014 5:19am 0.04 T/MM3 H 0.00 -0.03 Immature Granulocyte % (Auto) September 24, 2014 5:19am 0.5 % N 0.0-0.5 Immature Reticulocyte Fraction March 20, 2014 11:40am 11.7 % N 3.3-14.5 Iron Level June 10, 2014 9:01am 112 UG/DL N 37-170 LDL Cholesterol, Calculated May 13, 2010 6:24am 132.8 N 66-159 Lab Scanned Report September 22, 2014 7:02pm LAB TEST FORM REQUEST [id number] - Lipase September 23, 2014 12:20am 112 U/L N 23-300 Luteinizing Hormone May 13, 2010 6:24am 4.3 MIU/ML - Male: 1.7 - 11.2 mIU/mLFemale Ovulating: Follicular Phase: 1.7 - 13.3 mIU/mL, Peak: 4.1 - 68.7 mIU/mL, Luteal phase: 0.5 - 19.8 mIU/mL, Postmenopausal: 14.4 - 62.2 mIU/mL Lymphocytes # (Auto) September 24, 2014 5:19am 2.8 T/MM3 N 1-4.8 Lymphocytes # (Manual) 2014 4:34pm 3.9 T/MM3 N 1-4.8 Lymphocytes % (Manual) 2014 4:34pm 29.0 % N 23-45 Lymphocytes (%) (Auto) September 24, 2014 5:19am 34.6 % N 23-45 Magnesium Level September 14, 2012 9:05am 2.3 MG/DL N 1.6-2.3 Mean Corpuscular Hemoglobin September 24, 2014 5:19am 30.6 UUG N 26-34 Mean Corpuscular Hemoglobin Concent September 24, 2014 5:19am 31.7 GM/DL N 31-37 Mean Corpuscular Volume September 24, 2014 5:19am 96.5 UM3 N 80-100 Mean Platelet Volume September 24, 2014 5:19am 10.3 UM3 N 9.4-12.4 Metamyelocytes # September 11, 2012 4:45am 0.3 T/MM3 - Metamyelocytes % September 11, 2012 4:45am 2.0 % H 0-0 Monocytes # (Auto) September 24, 2014 5:19am 0.7 T/MM3 N 0-0.8 Monocytes # (Manual) 2014 4:34pm 0.4 T/MM3 N 0-0.8 Monocytes % (Manual) 2014 4:34pm 3.0 % N 0-9.0 Monocytes (%) (Auto) September 24, 2014 5:19am 8.5 % N 0-9.0 Myelocytes # September 11, 2012 4:45am 0.2 T/MM3 - Myelocytes % September 11, 2012 4:45am 1.0 % H 0-0 Neutrophils # (Auto) September 24, 2014 5:19am 4.4 T/MM3 N 1.8-7.7 Neutrophils # (Manual) 2014 4:34pm 8.6 T/MM3 H 1.8-7.7 Neutrophils % (Manual) 2014 4:34pm 64.0 % N 33-66 Neutrophils (%) (Auto) September 24, 2014 5:19am 54.2 % N 33-66 Percent Iron Saturation June 10, 2014 9:01am 29 % N 9-55 Percent Reticulocyte Count March 20, 2014 11:40am 2.9 % H 0.6-1.7 Platelet Count September 24, 2014 5:19am 329 T/MM3 N 130-400 Potassium Level September 24, 2014 5:19am 4.0 MEQ/L N 3.6-5 Procalcitonin September 23, 2014 12:30am 0.09 NG/ML - PCT </=0.5 ng/ mL - sepsis not likely;PCT >0.5 and </=2 ng/mL - sepsis possible; PCT >2 ng/mL - sepsis likely; PCT >/=10 ng/mL - systemic inflammatory response - sepsis or septic shock highly indicated. Prolactin May 13, 2010 6:24am 8.4 NG/ML - Male: 3.3 - 20.8 ng/ mLFemale: Premenopausal: 2.1 - 47.6 ng/mL, Postmenopausal: 0 - 41.4 ng/mL Prothromb Time International Ratio June 19, 2014 8:48am 0.89 N 0.81 -1.09 THERAPUTIC RANGE=2.00-3.00 FOR ANTI-THROMBOSIS THERAPUTIC RANGE=2.50- 3.50 FOR IMPLANTED VALVE RDW Standard Deviation September 24, 2014 5:19am 46.5 FL N 36.9-50.2 Reactive Lymphocytes # September 11, 2012 4:45am 0.5 T/MM3 H 0-0 Reactive Lymphocytes % September 11, 2012 4:45am 3.0 % H 0-0 Red Blood Count September 24, 2014 5:19am 3.40 M/MM3 L 4.00-5.20 Reticulocyte Hgb Content (CHr) March 20, 2014 11:40am 37.0 PG H 30.8- 36.6 Sodium Level September 24, 2014 5:19am 142 MEQ/L N 134-144 Thyroid Stimulating Hormone (TSH) December 03, 2013 5:05pm 0.92 MIU/L N 0.47-4.68 Total Bilirubin September 24, 2014 5:19am 0.60 MG/DL N 0.20-1.30 Total Iron Binding Capacity June 10, 2014 9:01am 390 UG/DL N 261-497 Total Protein September 24, 2014 5:19am 6.2 G/DL L 6.3-8.2 Triglycerides Level May 13, 2010 6:24am 206 MG/DL H 35-135 Troponin I 2014 4:34pm < 0.012 ng/ml 0-0.12 Turbidity September 24, 2014 5:19am < 20 0-20 Urinalysis Comment June 30, 2013 5:50pm Microscopic not ind. - Has specimen been collected/obtained? Y Urine Bacteria September 23, 2014 12:10am None seen - Has specimen been collected/obtained? Y Urine Bilirubin September 23, 2014 12:10am Negative - Has specimen been collected/obtained? Y Urine Blood September 23, 2014 12:10am 2+ H - Has specimen been collected/obtained? Y Urine Collection Type September 23, 2014 12:10am Cleancatch-midstream - Has specimen been collected/obtained? Y Urine Color September 23, 2014 12:10am Yellow - Has specimen been collected/obtained? Y Urine Culture Indicated September 23, 2014 12:10am Cult reflexed &setup - Has specimen been collected/obtained? Y Urine Glucose (UA) September 23, 2014 12:10am Negative - Has specimen been collected/obtained? Y Urine Glucose 1 Hour April 09, 2008 9:45am 3600 Negative - Urine Glucose 2 Hour April 09, 2008 9:45am 7200 Negative - Urine Ketones September 23, 2014 12:10am Trace H - Has specimen been collected/obtained? Y Urine Leukocyte Esterase September 23, 2014 12:10am Negative - Has specimen been collected/obtained? Y Urine Microscopic Not Indicated September 07, 2012 1:48am Not indicated - Has specimen been collected/obtained? Y Urine Mucus September 23, 2014 12:10am Present - Has specimen been collected/obtained? Y Urine Nitrite September 23, 2014 12:10am Positive H - Has specimen been collected/obtained? Y Urine Test January 24, 2013 11:20am Negative - Has specimen been collected/obtained? YCOMMENT RUN HERB PLEASE.THANKS Urine Protein September 23, 2014 12:10am 2+ H - Has specimen been collected/obtained? Y Urine RBC September 23, 2014 12:10am 3-5 /HPF H - Has specimen been collected/obtained? Y Urine Specific [place] September 23, 2014 12:10am >=1.030 H - Has specimen been collected/obtained? Y Urine Squamous Epithelial Cells September 23, 2014 12:10am 20-50 - Has specimen been collected/obtained? Y Urine Turbidity September 23, 2014 12:10am Clear - Has specimen been collected/obtained? Y Urine Urobilinogen September 23, 2014 12:10am 1.0 EU/DL - Has specimen been collected/obtained? Y Urine WBC September 23, 2014 12:10am None seen /HPF - Has specimen been collected/obtained? Y Urine Yeast September 23, 2014 12:10am 1+ H - Has specimen been collected/obtained? Y Urine pH September 23, 2014 12:10am 5.0 - Has specimen been collected/ obtained? Y VLDL Cholesterol May 13, 2010 6:24am 41.2 MG/DL H 0-28 Venous Blood Lactate September 23, 2014 12:30am 1.9 MMOL/L N 0.6-2.2 Vitamin D 25-Hydroxy May 13, 2010 6:24am Send out - White Blood Count September 24, 2014 5:19am 8.2 T/MM3 N 4.5-11.0 Blood Culture Peripheral Blood September 23, 2014 12:40am NO GROWTH AFTER 24 HOURS Gram Stain Cerebral Spinal Fluid December 03, 2013 5:00pm Viral Culture Csf December 04, 2013 2:40pm Procedures No known history of procedures. Encounters Encounter Location Date/Time Discharged Inpatient [facility] 09/23/14 3:40am Registered Clinic [facility] 09/22/14 1:01pm Registered Clinic [facility] 07/06/14 4:18pm Recent Diagnosis Exacerbation of systemic lupus erythematosus Pyelonephritis Left flank pain Exacerbation of systemic lupus erythematosus
--- OUTSIDE RECORDS SUMMARY | 2016-12-15 12:14 | XMS REPORT | Continuity of Care Document ---
Author Author [facility] Organization [facility] Address Unknown Phone Unavailable Support Name Relationship Address Phone RE GARIBAY MD Caregiver [address] [place] [address] TAYLOR LEOS MD Caregiver [address] [place] [address] [place] [phone] JUSTINO KNOTT Next Of Kin [address] [place] [address] [address] [place] [address] Insurance Providers Payer Name Policy Number Subscriber Name Relationship Rust [id number] Justino Knott 01 Spouse Problems Medical Problems Problem Onset Date Status [...] 400 Unit PO DAILY 01/23/13 06/30/13 Discontinued Cholecalciferol 1,000 Unit PO DAILY 01/23/13 Active Prednisone 5 Mg PO DAILY 01/23/13 Active Orphenadrine Citrate 100 Mg PO BID PRN 01/23/13 Active Celecoxib 200 Mg PO BEDTIME 01/23/13 Active Lorazepam 0.5 Mg PO NEEDED 01/23/13 Active [Progen] 01/24/13 01/24/13 Discontinued [Progesterone] BEDTIME 01/24/13 02/27/13 Discontinued Oxcarbazepine 300 Mg PO TWICE A DAY 02/27/13 06/30/13 Discontinued Divalproex Sodium 500 Mg PO TWICE A DAY 06/30/13 12/03/13 Discontinued Verapamil Hcl 80 Mg PO THREE TIMES A DAY 12/03/13 Active Metformin Hcl 850 Mg PO THREE TIMES A DAY 12/03/13 Active Lisinopril 10 Mg PO TWICE A DAY 04/18/14 Active [Fetzima] 80 Mg DAILY 04/18/14 Active Flaxseed 1,000 Mg PO BEDTIME 04/18/14 Active Olmesartan/Hydrochlorothiazide Unknown Dose PO PRN HEADACHE 04/18/14 Active Dexamethasone 2 Mg PO TWICE A DAY 7 Days Hold prednisone while on Decadron 04/18/14 Active Social History Social History Problem Response Recorded Date/Time Smoking Status Unknown if ever smoked 04/18/2014 1:25pm Chewing Tobacco Status No 04/18/2014 1:25pm Hx Substance Use No 04/18/2014 1:25pm Hx Alcohol Use No 04/18/2014 1:25pm Has the pt used tobacco in the last 12 months No 12/03/2013 4:13pm Query Response Start Date Stop Date Smoking Status Never smoker Hospital Discharge Instructions No hospital discharge instructions. Plan of Care No plan of care. Functional Status Query Response Date Recorded Physical Hygiene Self April 18, 2014 1:25pm Dressing Self April 18, 2014 1:25pm Ambulation Self April 18, 2014 1:25pm Diet Self April 18, 2014 1:25pm Mental Status Alert April 18, 2014 3:29pm Physical Hygiene Self April 18, 2014 1:25pm Dressing Self April 18, 2014 1:25pm Ambulation Self April 18, 2014 1:25pm Diet Self April 18, 2014 1:25pm Allergies, Adverse Reactions, Alerts Allergen Type Severity Reaction Status Last Updated Penicillin Allergy Intermediate HIVES Active 04/18/14 Egg Derived Allergy Mild headache Active 04/18/14 Adhesive Allergy Severe Active 04/18/14 Omeprazole Allergy Unknown N/V Active 04/18/14 Immunizations Name Given Type Hx Influenza Vaccination Y JUL 2013 Historical Hx Pneumococcal Vaccination Y 2008 Historical Hx Influenza Vaccination Y JUL 2013 Historical Vital Signs Acute Vital Signs Vital Response Date/Time Temperature (Fahrenheit) 96.1 deg F (96.8 - 99.1) Temperature (Calculated Celsius) 35.01306 degrees C (36.0 - 37.3) Pulse Rate (adult) 91 bpm (60 - 100) Respiratory Rate 16 breaths/min (10 - 20) O2 Sat by Pulse Oximetry 99 % (90 - 100) Blood Pressure 124/72 mm Hg Height 5 ft 2 in Weight 256 lb Body Mass Index 46.0 kg/m^2 Results Test Source Date Result Interp. Ref. Range Comments Absolute Reticulocyte Count March 20, 2014 11:40am 0.1266 T/MM3 H 0.0300- 0.0900 Alanine Aminotransferase (ALT/SGPT) April 18, 2014 1:25pm 206 U/L H 9-52 Albumin April 18, 2014 1:25pm 4.2 G/DL N 3.5-5.0 Albumin/Globulin Ratio April 18, 2014 1:25pm 1.8 RATIO N 1.1-2.2 Alkaline Phosphatase April 18, 2014 1:25pm 71 U/L N 38-126 Ooowo-1-Uiuzebhsike March 20, 2014 11:40am 131 mg/dL - Reference Range :100 - 190 Test Performed by: [place] [address] Clerical Warehouse Worker: Saqib [place] III, M.D. [id number] performed at [facility], [address] [place] [address] Dye Reel Operator Helper Marcelino Sanchez MD Anion Gap April 18, 2014 1:25pm 13 MEQ/L N 5-15 Anti-Double Strand DNA Antibody September 06, 2012 10:08pm Ref lab rpt scanned - --- 09/10/12 0703 ---ANTIDS previously reported as: SENT OUT Anti-Smooth Muscle Antibody March 20, 2014 11:40am Negative - Test Performed by:[place] [id number] Clerical Warehouse Worker: Saqib [place] III, M.D. Anti-Smooth Muscle Ab performed at [facility], [address] [place] [address] Dye Reel Operator Helper Marcelino Sanchez MD Aspartate Amino Transf (AST/SGOT) [...] Range: 16.0 - 45.0 Test Performed by: [facility] [address] [place] [address] Clerical Warehouse Worker: Saqib [place] III, M.D. Ceruloplasmin, S performed at [facility], [address] [place] [id number] Dye Reel Operator Helper Marcelino Sanchez MD Chloride Level April 18, 2014 1:25pm 104 [...] 2014 1:25pm 6 MM/HR N 0-20 Ferritin March 20, 2014 11:40am 31.2 NG/ML N 6-137 Follicle Stimulating Hormone May 13, 2010 6:24am 13.4 MIU/ML - Male : 1.0 - 42.5 Vince/mLFemale Ovulating: Follicular Phase: 2.7 - 15.4 mIU/mL, Peak: 3.9 - 22.0 Vince/mL, Luteal phase: 1.0 - 14.4 mIU/mL, Postmenopausal: 25.0 - 160.0 mIU/mL Free Thyroxine April 29, 2009 4:34pm 0.99 NG/DL N 0.78-2.[address] GARIBAY [id number] Free Triiodothyronine April 29, 2009 4:34pm 3.84 PG/ML N 2.77-5.[address] GARIBAY [id number] Globulin April 18, 2014 1:25pm 2.4 G/DL N 2.4-3.6 Glucose 1 Hour April 09, 2008 9:45am 3600 70 - Glucose 2 Hour April 09, 2008 9:45am 7200 76 - Glucose Level April 18, 2014 1:25pm 116 MG/DL H 65-110 Helicobacter pylori Antibodies September 08, 2012 5:15am [...] Negative - COMMENT TO SCU AT 0530 Immature Reticulocyte Fraction March 20, 2014 11:40am 11.7 % N 3.3-14.5 Iron Level March 20, 2014 11:40am 120 UG/DL N 37-170 LDL Cholesterol, Calculated May 13, 2010 6:24am 132.8 N 66-159 Luteinizing Hormone May 13, 2010 6:24am 4.3 [...] 71.4 % H 33-66 Percent Iron Saturation March 20, 2014 11:40am 33 % N 9-55 Percent Reticulocyte Count March 20, 2014 11:40am 2.9 % H 0.6-1.7 Platelet Count April 18, 2014 1:25pm 320 T/MM3 N 130-400 Potassium Level April 18, 2014 1:25pm 3.5 MEQ/L L 3.6-5 Prolactin May 13, 2010 6:24am 8.4 NG/ML - Male: 3.3 - 20.8 ng/ mLFemale: Premenopausal: 2.1 - 47.6 ng/mL, Postmenopausal: 0 - 41.4 ng/mL RDW Standard Deviation April 18, 2014 1:25pm 45.1 FL N 36.9-50.2 Red Blood Count April 18, 2014 1:25pm 4.27 M/MM3 N 4.00-5.20 Reticulocyte Hgb Content (CHr) March 20, 2014 11:40am 37.0 PG H 30.8- 36.6 Sodium Level April 18, 2014 1:25pm 140 MEQ/L N 134-144 Thyroid Stimulating Hormone (TSH) December 03, 2013 5:05pm 0.92 MIU/L N 0.47-4.68 Total Bilirubin April 18, 2014 1:25pm 0.70 MG/DL N 0.20-1.30 Total Iron Binding Capacity March 20, 2014 11:40am 365 UG/DL N 261-497 Total Protein April 18, 2014 1:25pm 6.6 G/DL N 6.3-8.2 Triglycerides Level May 13, 2010 6:24am 206 MG/DL H 35-135 Urine Bacteria April 18, 2014 2:04pm 1+ [...] specimen been collected /obtained? Y Urine Specific [place] April 18, 2014 2:04pm 1.025 - Has [...] 18, 2014 1:25pm 9.0 T/MM3 N 4.5-11.0 Chemistry Specimen Hemolysis April 18, 2014 1:25pm [...] can falsely decrease Phenytoin. Recommend specimen recollection. Urinalysis Comment June 30, 2013 5:50pm Microscopic not ind. - Has specimen been collected/obtained? Y Glucometer December 05, 2013 10:34am 82 mg/dL N 65-110 Lab Scanned Report March 20, 2014 12:46pm LAB TEST FORM REQUEST [id number] - HDL Cholesterol Direct May 13, 2010 6:24am 50 MG/DL N 40-60 Turbidity April 18, 2014 1:25pm 41 H 0-20 0-21: Turbidity not present.22 -999: Turbidity present - Gross turbidity can falsely decrease Lipase and Triglycerides. Reactive Lymphocytes % September 11, 2012 4:45am 3.0 % H 0-0 Glomerular Filtration Rate Calc April 18, 2014 1:25pm 111 - Reactive Lymphocytes # September 11, 2012 4:45am 0.5 T/MM3 H 0-0 Immature Granulocyte # (Auto) April 18, 2014 1:25pm 0.03 T/MM3 N 0.00- 0.03 Immature Granulocyte % (Auto) April 18, 2014 1:25pm 0.3 % N 0.0-0.5 Icterus Index April 18, 2014 1:25pm < 2 0-7 Urine Microscopic Not Indicated September 07, 2012 1:48am Not indicated - Has specimen been collected/obtained? Y Blood Culture Blood September 06, 2012 10:08pm NO GROWTH AFTER 5 DAYS Gram Stain Cerebral Spinal Fluid December 03, 2013 5:00pm Viral Culture Csf December 04, 2013 2:40pm Procedures No known history of procedures. Encounters Encounter Location Date/Time Departed Emergency Room [facility] 04/18/14 12:37pm Registered Clinic [facility] 03/20/14 11:15am Registered Clinic [facility] 01/23/14 6:54am Recent Diagnosis
[2016-12-15] MEDS ORDERED: D5-1/2 NS KCL 20 MEQ 1,000 ML IV SCH (12:45)
[2016-12-15] MEDS ORDERED: AZAT50TA6 PO (13:09)
[2016-12-15] MEDS ORDERED: CLON1TAB23 PO ×2 (13:09→18:45)
[2016-12-15] MEDS ORDERED: QUET25TA PO ×2 (13:09)
[2016-12-15] MEDS ORDERED: LABE100T PO (13:09)
[2016-12-15] MEDS ORDERED: LAMO25TA3 PO (13:09)
[2016-12-15] MEDS: MEPERIDINE 100 mg/ml VIAL IV PRN ×2 (13:34→20:00)
--- NOTE | 2016-12-15 13:47 | HPF ---
CHIEF COMPLAINT Headache. HPI The patient is a 41-year-old female who was brought today by her [id number]. Came in today with chief complaint of a severe headache in the occipital region that maybe occasionally moved to the front. She was seen for a similar episode yesterday and received IM Toradol, IM Demerol, IM promethazine as well as dexamethasone injection. She got a little bit better, but she is back this morning because her headache is just not getting better. Light bothers her and so does not noise and she does have dry heaving as well. This not the worst headache of her life. The patient fell last week. She had an MRI of head done two weeks ago by Dr. Ba who is a neurologist. The patient denies any chest pain, orthopnea. No PND. No leg swelling. Denies hematochezia. No melena. As part of workup this morning I saw patient myself. We decided we would treat her on an outpatient basis with Zofran and Demerol, Solu-Medrol and Toradol. However, patient also needed UA because she said she was having trouble urinating. She went to the bathroom and to get urine sample and she does not recall a lot the events after that, but she said that she got up and then she fell onto the wall in the bathroom. Two or three of the staff heard the banging sounds due to her fall. The patient was immediately attended to by staff members including myself. The patient does not recall if she had a blackout episode or not. She said she feels lightheaded. She has had this issue with frequent falls over the last year and a half that we have tried to investigate on multiple occasions including the professional opinion, management by neurology. The frequency of gait instability and falls had actually decreased lately. She denies any symptoms of upper respiratory or allergy at this time. PAST MEDICAL HISTORY 1. Pyelonephritis. 2. Systemic lupus erythematosus. 3. Migraine headache. 4. Chronic hematuria. 5. Frequent urinary tract infections. 6. Chronic left flank pain. 7. Fatty liver. 9. Tension headache. 10. Chronic abdominal pain. 11. Anxiety and depression. 12. Posttraumatic stress syndrome. 13. DVT. 14. Frequent headaches. 15. Frequent falls. 16. Gait instability. ALLERGIES AMOXICILLIN, KEFLEX, PRILOSEC FAMILY HISTORY Diabetes in mom. Her paternal grandfather had heart trouble and hypertension. Father of heart attack in his 70s. An uncle with heart trouble. Maternal grandfather with hypertension and stroke. Diabetes and hypertension is common in family members. SOCIAL HISTORY The patient is with three children, all in good health. No alcohol use or tobacco use. CURRENT MEDICATIONS 1. Advair Diskus 250/50 mcg one puff b.i.d. 2. [place] Thyroid 60 mg one tablet daily. 3. Clonazepam 2 mg two tablets at bedtime. 4. Cyclobenzaprine 10 mg one tablet t.i.d. p.r.n. muscle spasm. 5. Cymbalta 30 mg take one tablet daily with 60 mg for total of 90 mg daily. 6. Flonase 50 mcg two sprays in each nostril once daily. 7. Imuran 50 mg one tablet daily. 8. Labetalol 200 mg one tablet p.o. daily. 9. Lidocaine patch 5% applied to affected area once daily. 10. Losartan 100 mg half a tablet p.o. b.i.d. 11. Magnesium oxide one tablet daily. 12. Metformin 1,000 mg one tablet p.o. b.i.d. 13. [place] 7.5 mg one tablet q3-4h. p.r.n. 14. Pantoprazole 40 mg one tablet p.o. b.i.d. 15. Potassium chloride 20 mEq two tablets once daily. 16. Promethazine 25 mg one tablet p.o. t.i.d. p.r.n. 17. Ritalin 20 mg one tablet p.o. b.i.d. 18. Singulair 10 mg one tablet p.o. daily. 19. Sumatriptan p.r.n. for headache. 20. Ventolin inhaler 1-2 puffs p.r.n. 21. Xanax 1 mg half a tablet b.i.d. p.r.n. 22. Zofran 4 mg one tablet p.o. t.i.d. p.r.n. nausea. PHYSICAL EXAMINATION GENERAL: The patient is quite tearful throughout the examination and seems to be confused at times, not remembering what happened or conversation with me and even the in the room. She seems quite emotional today as well. HEENT: Unremarkable. NECK: Supple. LUNGS: Clear to auscultation bilaterally. CARDIOVASCULAR: Regular rate and rhythm. ABDOMEN: Soft. Nontender. EXTREMITIES: No cyanosis, clubbing or edema. NEURO EXAM: Grossly intact. No focal neurologic deficit. Deep tendon reflexes equal and strong bilaterally. Sensory and motor test is adequate. ASSESSMENT 1. Acute severe headache. Patient has failed outpatient oral treatment as well as intramuscular treatment. 2. Frequent falls with patient actually experiencing a fall in the bathroom in the office setting this morning. Cannot really rule out a syncopal episode at that time. 3. Unsteady gait. 4. Dehydration. 5. Systemic lupus erythematosus. There may be a flare-up at this time - yet to be proven. 6. UA did show evidence of ketones, maybe trace bacteria. Otherwise unremarkable UA. PLAN Patient is to be admitted to [facility] for further evaluation and recommendations. Will start patient on IV fluids, IV pain management for the headache. CT head without contrast to rule out evidence of acute VC++ DEVELOPER injury, CBC, double strand DNA, C3 and C4 complement to assess for any evidence of acute lupus flare-up, CMP , TSH, sed rate. Will also start patient on Solu-Medrol 125 mg IV q.8h. for now. Consultation to Dr. Nixon has been initiated. Patient also will receive Toradol every 8 hours p.r.n. for headache. We will hold off on home medication for the next four hours and see how she responds as well as based on the CT head report. I spent 45 minutes to one hour on visit with patient today. ADDENDUM TO PLAN (D. 12/15/16 11:29) Patient also received at the office Solu-Medrol 125 mg IM x 1, Toradol 60 mg IM x 1 as well as Zofran 4 mg IM x1, and also we had a UA done on her. [facility]
[2016-12-15 15:20] LABS: HCT - HEMATOCRIT 35.2 % (36-46); HGB - HEMOGLOBIN 11.2 GM/DL (12-16); MEAN CORPUSCULAR HGB 30.6 UUG (26-34); MEAN CORPUSCULAR HGB CONC(MCHC 31.8 GM/DL (31-37); MEAN CORPUSCULAR VOLUME 96.2 UM3 (80-100); MEAN PLATELET VOLUME 10.1 UM3 (9.4-12.4); RED BLOOD COUNT 3.66 M/MM3 (4.00-5.20); WBC - WHITE BLOOD COUNT 7.7 T/MM3 (4.5-11.0)
[2016-12-15] MEDS: KETOROLAC 15mg/ml INJECTION IV PRN (15:24)
[2016-12-15 15:25] LABS: ALBUMIN 4.1 G/DL (3.5-5.0); ALBUMIN/GLOBULIN RATIO 1.7 RATIO (1.1-2.2); ALKALINE PHOSPHATASE 40 U/L (38-126); ALT (SGPT) 100 U/L (9-52); ANION GAP 11 MEQ/L (5-15); AST (SGOT) 73 U/L (14-36); BUN/CREATININE RATIO 16 RATIO (6-26); CALCIUM 9.3 MG/DL (8.4-10.2); CHLORIDE 108 MEQ/L (98-107); CO2 - CARBON DIOXIDE 24 MEQ/L (22-30); CREATININE 0.7 MG/DL (0.7-1.2); GLOMERULAR FILTRATION RATE 91; GLUCOSE 163 MG/DL (65-110); POTASSIUM 4.2 MEQ/L (3.6-5); SODIUM 143 MEQ/L (134-144); TOTAL PROTEIN 6.5 G/DL (6.3-8.2)
[2016-12-15] MEDS: ONDANSETRON 4mg/2ml INJECTION IV PRN (15:41)
[2016-12-15 15:45] LABS: BAND NEUTROPHILS # 0.1 T/MM3; LYMPHOCYTES # (MANUAL) 0.8 T/MM3 (1-4.8); NEUTROPHILS #(MANUAL)-ABSOLUTE 6.9 T/MM3 (1.8-7.7); TOTAL CELLS COUNTED 100 %
[2016-12-15 15:46] LABS: ANISOCYTOSIS 1+
--- NOTE | 2016-12-15 16:09 | DI ---
Indication: ITS.REASON: FALL WITH HEADACHE PROCEDURE: CT HEAD W/O CONTRAST: Encounter: Initial Comparison: September 04, 2016 Technique: Axial CT images through the head were performed without contrast. Iterative Reconstruction dose reducing technique was utilized. FINDINGS: The ventricles are of normal size, shape, and configuration for the patient's age. There is no evidence of acute intracranial hemorrhage, midline displacement, or mass effect. The CT attenuation of the brain parenchyma is normal within the cerebellum, brain stem, and cerebral hemispheres. The tympanic cavities and mastoid air cells are free of appreciable disease. There are no definite fractures of the skull base, calvarium, or visualized portion of the midface. Mild sinus mucosal thickening. IMPRESSION: No CT evidence of acute traumatic intracranial injury. Mild sinus disease. .
[2016-12-15] MEDS: ALBUTEROL INH.SOLN. 2.5mg/3ml (0.083%) Neb. AEROSOL PRN (16:37)
[2016-12-15] MEDS: CycloSPORINE 0.05% Eye Drops 0.4ml DROPERETTE BOTH EYES SCH (17:19)
[2016-12-15] MEDS: D5-1/2 NS KCL 20 MEQ 1,000 ML IV SCH (17:19)
[2016-12-15] MEDS: METFORMIN 1,000 MG TABLET PO SCH (17:34)
[2016-12-15] MEDS ORDERED: AZAT50TA PO (18:45)
[2016-12-15] MEDS ORDERED: ALBU18HF2 ORAL INH (18:45)
[2016-12-15] MEDS ORDERED: AZIT250T6 PO (18:45)
[2016-12-15] MEDS ORDERED: POTA-81 PO (18:45)
[2016-12-15] MEDS ORDERED: ONDA-55 PO (18:45)
[2016-12-15] MEDS ORDERED: QUET25TA73 PO (18:45)
[2016-12-15] MEDS ORDERED: MONT10TA25 PO (18:45)
[2016-12-15] MEDS ORDERED: LABE200T PO (18:45)
[2016-12-15] MEDS: SUMATRIPTAN 100 MG TABLET PO PRN (19:47)
[2016-12-15] MEDS: METHYLPHENIDATE 5 MG TABLET PO SCH (21:00)
[2016-12-15] MEDS: LABETALOL 100 MG TABLET PO SCH (22:17)
[2016-12-15] MEDS: CLONAZEPAM 1 MG TABLET PO SCH (22:17)
[2016-12-15] MEDS: FLUTICASONE NASAL SPRAY 50 MCG EA NOSTRIL SCH (22:18)
[2016-12-15] MEDS: QUETIAPINE 25 MG TABLET PO SCH (22:18)
[2016-12-15] MEDS: ASPIRIN *EC* 81mg TABLET PO SCH (22:18)
[2016-12-16] VITALS (12 sets, daily range): BP systolic 115–179; BP diastolic 65–102; PULSE 62–88; RESP 18–76; TEMP 96.9–98; O2SAT 91–96
[2016-12-16] MEDS: ONDANSETRON 4mg/2ml INJECTION IV PRN ×4 (00:33→21:22)
[2016-12-16] MEDS: D5-1/2 NS KCL 20 MEQ 1,000 ML IV SCH ×4 (00:33→21:23)
[2016-12-16] MEDS: KETOROLAC 15mg/ml INJECTION IV PRN ×3 (00:38→23:43)
[2016-12-16] MEDS: CycloSPORINE 0.05% Eye Drops 0.4ml DROPERETTE BOTH EYES SCH ×2 (07:02→18:08)
[2016-12-16] MEDS: PANTOPRAZOLE 40 MG TABLET PO SCH (07:02)
[2016-12-16] MEDS: MEPERIDINE 100 mg/ml VIAL IV PRN ×2 (07:38→14:31)
[2016-12-16] MEDS: ALBUTEROL INH.SOLN. 2.5mg/3ml (0.083%) Neb. AEROSOL PRN ×3 (08:11→20:39)
[2016-12-16] MEDS: METHYLPHENIDATE 5 MG TABLET PO SCH ×2 (09:00→21:00)
[2016-12-16] MEDS: METFORMIN 1,000 MG TABLET PO SCH ×2 (09:13→18:08)
[2016-12-16] MEDS: LABETALOL 100 MG TABLET PO SCH ×2 (09:13→21:08)
[2016-12-16] MEDS: POTASSIUM CHLORIDE 20 MEQ TABLET PO SCH (09:13)
[2016-12-16] MEDS: LAMOTRIGINE 25 MG TABLET PO SCH (09:13)
[2016-12-16] MEDS: CLONAZEPAM 1 MG TABLET PO SCH ×2 (09:13→21:08)
[2016-12-16] MEDS: DULOXETINE 30 MG CAPSULE PO SCH (09:14)
[2016-12-16] MEDS: FLUTICASONE NASAL SPRAY 50 MCG EA NOSTRIL SCH ×2 (09:14→21:14)
[2016-12-16] MEDS: LOSARTAN 50 MG TABLET PO SCH (09:14)
[2016-12-16] MEDS ORDERED: HYDROMORPHONE 2mg/ml INJECTION IV ONE (11:30)
[2016-12-16] MEDS: QUETIAPINE 25 MG TABLET PO PRN (14:34)
[2016-12-16] MEDS: SUMATRIPTAN 100 MG TABLET PO PRN (19:15)
[2016-12-16] MEDS ORDERED: HYDROMORPHONE 2mg/ml INJECTION IV PRN (20:00)
[2016-12-16] MEDS: ASPIRIN *EC* 81mg TABLET PO SCH (21:08)
[2016-12-16] MEDS: QUETIAPINE 25 MG TABLET PO SCH (21:08)
[2016-12-17] VITALS (7 sets, daily range): BP systolic 147–201; BP diastolic 70–121; PULSE 72–76; RESP 18–20; TEMP 97.5–98.2; O2SAT 91–96
[2016-12-17] MEDS: ONDANSETRON 4mg/2ml INJECTION IV PRN ×3 (03:10→21:49)
[2016-12-17] MEDS: D5-1/2 NS KCL 20 MEQ 1,000 ML IV SCH ×3 (04:50→15:25)
[2016-12-17] MEDS: CycloSPORINE 0.05% Eye Drops 0.4ml DROPERETTE BOTH EYES SCH ×3 (04:51→22:36)
[2016-12-17] MEDS: PANTOPRAZOLE 40 MG TABLET PO SCH (06:12)
[2016-12-17] MEDS: MEPERIDINE 100 mg/ml VIAL IV PRN (06:13)
[2016-12-17] MEDS: ALBUTEROL INH.SOLN. 2.5mg/3ml (0.083%) Neb. AEROSOL PRN (07:26)
[2016-12-17] MEDS: LAMOTRIGINE 25 MG TABLET PO SCH (08:46)
[2016-12-17] MEDS: METFORMIN 1,000 MG TABLET PO SCH ×2 (08:47→17:12)
[2016-12-17] MEDS: LABETALOL 100 MG TABLET PO SCH ×2 (08:47→22:36)
[2016-12-17] MEDS: POTASSIUM CHLORIDE 20 MEQ TABLET PO SCH (08:47)
[2016-12-17] MEDS: CLONAZEPAM 1 MG TABLET PO SCH ×2 (08:47→22:36)
[2016-12-17] MEDS: DULOXETINE 30 MG CAPSULE PO SCH (08:47)
[2016-12-17] MEDS: METHYLPHENIDATE 5 MG TABLET PO SCH ×2 (08:48→13:00)
[2016-12-17] MEDS: LOSARTAN 50 MG TABLET PO SCH (08:48)
[2016-12-17] MEDS: FLUTICASONE NASAL SPRAY 50 MCG EA NOSTRIL SCH ×2 (10:09→22:38)
[2016-12-17] MEDS: KETOROLAC 15mg/ml INJECTION IV PRN (10:24)
--- NOTE | 2016-12-17 12:19 | PNF ---
DATE 12/16/2016 SUBJECTIVE Patient was seen in her room. She is still complaining of the same level of headache. She feels weak, unsteady. PHYSICAL EXAM GENERAL: The patient actually looks a little bit brighter today than on the day of admission. HEENT: Unremarkable. NECK: Supple. CHEST: Lungs are clear. CARDIOVASCULAR: Regular rate and rhythm. ABDOMEN: Soft. EXTREMITIES: No edema. ASSESSMENT 1. Acute severe headache. 2. Frequent falls. 3. Unsteady gait. 4. Dehydration. 5. Anxiety disorder. 6. Depression. 7. Posttraumatic stress disorder. PLAN Continue pain management. Physical Therapist to see patient. BRANDON
--- NOTE | 2016-12-17 12:24 | PNF ---
DATE 12/17/2016 SUBJECTIVE Patient feels like she is better today. She is still a bit unsteady. She fell again yesterday evening. PHYSICAL EXAM VITAL SIGNS: Blood pressure 167/87. Pulse 75. Temperature 97.9. Oxygen saturation 91% on room air. GENERAL: The patient looks comfortable. NECK: Supple. CHEST: Lungs are clear. CARDIOVASCULAR: Regular rate and rhythm. ABDOMEN: Soft. EXTREMITIES: No edema. ASSESSMENT 1. Headache, waxing and waning. Etiology remains unclear. Probably multifactorial, a combination of both migraine and tension headache. 2. Frequent falls. Patient fell again here in the hospital yesterday evening. 3. Unsteady gait. 4. Dehydration. 5. SLE appearing to have no flare-up at this time. 6. Anxiety disorder. 7. Depression. 8. PTSD. 9. Frequent urinary tract infections. PLAN Decrease IV fluids to 125 cc, Change IV solu-medrol from q.8 to q 12hour Continue Toradol IV for now. Limit the amount of Dilaudid for migraine headache. Anticipate dismissal soon. Will have patient be seen by Dr. Nixon tomorrow. Physical Therapist will work with her tomorrow. She is very unsteady. [facility]
[2016-12-17] MEDS: SUMATRIPTAN 100 MG TABLET PO PRN (13:16)
[2016-12-17] MEDS ORDERED: HYDR-4010 PO (15:18)
[2016-12-17 15:38] LABS: BLOOD, URINE TRACE-INTACT (NEGATIVE); COLOR,URINE YELLOW (YELLOW); LEUKOCYTE ESTERASE ,URINE NEGATIVE (NEGATIVE); NITRITE,URINE POSITIVE (NEGATIVE); UROBILINOGEN,URINE 0.2 EU/DL (NORMAL)
[2016-12-17 15:49] LABS: BACTERIA,URINE 3+ (NEGATIVE); RBC,URINE NONE SEEN /HPF (0-3); SQUAMOUS EPITHELIAL CELL,UR 0-5; WBC,URINE 0-1 /HPF (0-5)
[2016-12-17] MEDS ORDERED: AMLODIPINE 5 MG TABLET PO ONE (17:45)
[2016-12-17] MEDS ORDERED: LEVOFLOXACIN 500 mg IVPB 500 MG in D5W 100 ML IV ONE (17:45)
[2016-12-17 18:27] LABS: ANION GAP 12 MEQ/L (5-15); BUN/CREATININE RATIO 20 RATIO (6-26); CALCIUM 9.4 MG/DL (8.4-10.2); CHLORIDE 107 MEQ/L (98-107); CO2 - CARBON DIOXIDE 25 MEQ/L (22-30); CREATININE 0.7 MG/DL (0.7-1.2); GLOMERULAR FILTRATION RATE 91; GLUCOSE 101 MG/DL (65-110); POTASSIUM 4.4 MEQ/L (3.6-5); SODIUM 144 MEQ/L (134-144)
[2016-12-17] MEDS: PHENAZOPYRIDINE 95 MG TABLET PO SCH (18:27)
[2016-12-17] MEDS: ALBUTEROL/IPRATROPIUM INHAL. 2.5mg-0.5mg/3ml Neb. AEROSOL SCH (20:30)
[2016-12-17] MEDS ORDERED: PHENAZOPYRIDINE 95 MG TABLET PO SCH (21:00)
[2016-12-17] MEDS: QUETIAPINE 25 MG TABLET PO SCH (22:36)
[2016-12-17] MEDS: ASPIRIN *EC* 81mg TABLET PO SCH (22:36)
[2016-12-18] VITALS (9 sets, daily range): BP systolic 133–161; BP diastolic 69–98; PULSE 70–85; RESP 16–18; TEMP 96.8–98.2; O2SAT 89–98
[2016-12-18] MEDS: PANTOPRAZOLE 40 MG TABLET PO SCH (05:42)
[2016-12-18] MEDS: SUMATRIPTAN 100 MG TABLET PO PRN ×2 (07:25→23:48)
[2016-12-18] MEDS: ONDANSETRON 4mg/2ml INJECTION IV PRN ×4 (07:26→23:46)
[2016-12-18] MEDS: DULOXETINE 60 MG CAPSULE PO SCH (09:00)
[2016-12-18] MEDS: POTASSIUM CHLORIDE 20 MEQ TABLET PO SCH (09:15)
[2016-12-18] MEDS: CLONAZEPAM 1 MG TABLET PO SCH ×2 (09:15→21:25)
[2016-12-18] MEDS: METHYLPHENIDATE 5 MG TABLET PO SCH ×2 (09:15→13:08)
[2016-12-18] MEDS: LABETALOL 100 MG TABLET PO SCH ×2 (09:16→21:25)
[2016-12-18] MEDS: METFORMIN 1,000 MG TABLET PO SCH ×2 (09:17→16:44)
[2016-12-18] MEDS: LAMOTRIGINE 25 MG TABLET PO SCH (09:17)
[2016-12-18] MEDS: LOSARTAN 50 MG TABLET PO SCH (09:17)
[2016-12-18] MEDS: PHENAZOPYRIDINE 95 MG TABLET PO SCH ×3 (09:17→21:24)
[2016-12-18] MEDS: FLUTICASONE NASAL SPRAY 50 MCG EA NOSTRIL SCH ×2 (09:18→21:26)
[2016-12-18] MEDS ORDERED: VALPROATE IV ONE (09:30)
[2016-12-18] MEDS ORDERED: NORMAL SALINE IV ONE (09:30)
[2016-12-18] MEDS: ALBUTEROL/IPRATROPIUM INHAL. 2.5mg-0.5mg/3ml Neb. AEROSOL SCH ×2 (11:10→20:21)
--- NOTE | 2016-12-18 14:56 | CONSF ---
DATE OF NEUROLOGY CONSULTATION 12/18/[address] Ash Saldaña Patient's chief complaint is headache and balance problem. HISTORY OF PRESENT ILLNESS Patient is a 41-year-old female with history of migraine headache and lupus. The patient has been stable for the past few years. She had a head injury and fall in August of 2016. The patient hit her head with a shelf rack and then fell backwards and hit her head on the bathtub. She has been having worse headache, dizziness and balance problem since then. The patient has been while following with Dr. Ba in [place]. She had MRI of the brain and CT head on multiple locations. None of that showed any particular abnormalities. The patient continues to have a falling problem. She normally has headache on the left side of her head. Her headache has currently switched to the right side of the head since the fall. The patient denies losing consciousness or having seizure problem. She had a nerve conduction and EMG done last fall which showed no significant nerve damage. She has been complaining of numbness and tingling in the legs, right worse than left. The patient was visiting her primary care doctor last and she had a fall in the bathroom. She was admitted to [facility] for weakness, balance problem and headache. The patient was checked for lupus exacerbation and her labs were borderline. She was started on Solu-Medrol at a higher dosage. This has helped some of her headache and sensory symptoms. She continues to have occasional sharp headache affecting the right side of the head. Her migraine headaches have been stable overall. She has used Imitrex occasionally in the past few weeks. The patient denies having any focal weakness or numbness except her leg symptoms. She has had no new vision loss or double vision. She had a CT head on admission that was unremarkable. Prior to that she had an MRI of the brain two weeks ago that showed no acute brain injury or lesion. PHYSICAL EXAMINATION The patient was awake, alert, oriented x 3. Pupils were round, reactive and equal. Extraocular muscles were intact. Visual field was full. Her facial sensory and motor were normal. She was having flushing of her face bilaterally. This can be associated with lupus. Her motor examination in the upper extremities was 5/5, in the lower extremities was 5-/5. Sensory examination was slightly diminished in the right lower extremity including the top of the foot and lateral aspect of the leg. Her deep tendon reflexes were 2+/4. Plantar reflexes were in flexion bilaterally. Coordination for [id number] were normal bilaterally. The patient is having headache graded as 8/10 at present time. ASSESSMENT 1. Postconcussion syndrome associated with lingering migrainous type headache, dizziness and balance problem and memory and attention deficits. This has been stable and slightly improving on the Solu-Medrol. 2. Migraine headache normally treated with Imitrex. 3. Lupus. 4. UTI. PLAN 1. Continue Solu-Medrol titration. This can be changed to prednisone up to 30 mg p.o. q.d. for 3 days, then 20 mg p.o. q.d. for 3 days, then 10 mg p.o. q.d. for 3 days upon discharge. 2. Continue Imitrex for migraine headache. 3. Monitor blood pressure closely and check for orthostatic changes which can be causing the patient's fall and balance issues. 4. Continue treatment for UTI and provide good fluid intake. 5. Consider physical and occupational therapy as an outpatient to help with balance, coordination and vertiginous sensation associated with postconcussion syndrome. 6. Optimize treatment for lupus and follow up with c4 planner. Thank you. BRANDON
[2016-12-18] MEDS ORDERED: AMLODIPINE 5 MG TABLET PO ONE ×2 (16:30→18:00)
[2016-12-18] MEDS: CycloSPORINE 0.05% Eye Drops 0.4ml DROPERETTE BOTH EYES SCH (16:44)
[2016-12-18] MEDS: LEVOFLOXACIN 500 mg IVPB 500 MG in D5W 100 ML IV SCH (16:45)
[2016-12-18] MEDS: ASPIRIN *EC* 81mg TABLET PO SCH (21:25)
[2016-12-18] MEDS: QUETIAPINE 25 MG TABLET PO SCH (21:25)
[2016-12-19] VITALS (10 sets, daily range): BP systolic 111–158; BP diastolic 69–100; PULSE 68–82; RESP 18; TEMP 95.7–97.4; O2SAT 87–95
[2016-12-19] MEDS: CycloSPORINE 0.05% Eye Drops 0.4ml DROPERETTE BOTH EYES SCH ×2 (04:08→20:38)
[2016-12-19] MEDS: PANTOPRAZOLE 40 MG TABLET PO SCH (05:30)
[2016-12-19] MEDS: ONDANSETRON 4mg/2ml INJECTION IV PRN ×3 (05:33→12:27)
[2016-12-19] MEDS: DULOXETINE 60 MG CAPSULE PO SCH (08:50)
[2016-12-19] MEDS: LABETALOL 100 MG TABLET PO SCH ×2 (08:50→20:38)
[2016-12-19] MEDS: PHENAZOPYRIDINE 95 MG TABLET PO SCH ×3 (08:50→20:38)
[2016-12-19] MEDS: LAMOTRIGINE 25 MG TABLET PO SCH (08:51)
[2016-12-19] MEDS: LOSARTAN 50 MG TABLET PO SCH (08:51)
[2016-12-19] MEDS: METFORMIN 1,000 MG TABLET PO SCH ×2 (08:51→17:08)
[2016-12-19] MEDS: CLONAZEPAM 1 MG TABLET PO SCH ×2 (08:51→20:38)
[2016-12-19] MEDS: METHYLPHENIDATE 5 MG TABLET PO SCH ×2 (08:51→13:00)
[2016-12-19] MEDS: POTASSIUM CHLORIDE 20 MEQ TABLET PO SCH (08:52)
[2016-12-19] MEDS: LEVOFLOXACIN 500 mg IVPB 500 MG in D5W 100 ML IV SCH (08:52)
[2016-12-19] MEDS: FLUTICASONE NASAL SPRAY 50 MCG EA NOSTRIL SCH ×2 (08:52→20:40)
--- NOTE | 2016-12-19 11:19 | PNF ---
DATE 12/18/2016 SUBJECTIVE Patient continues to complain of severe headache, in addition also she fell from bed last evening as well. She also complains of bladder spasm. PHYSICAL EXAMINATION GENERAL: Patient looks ill. HEENT: Unremarkable. NECK: Supple. No rigidity. LUNGS: Clear to auscultation bilaterally. CARDIOVASCULAR: Regular rate and rhythm. ABDOMEN: Soft. EXTREMITIES: No cyanosis, no clubbing, no edema. NEURO EXAM: Grossly intact. LABORATORY UA positive for urinary tract infection. ASSESSMENT 1. Intractable migraine/tension headache. 2. Gait imbalance. 3. Recurrent/frequent falls. 4. Urinary tract infection not otherwise specified. Start patient on IV antibiotics. 5. SLE. This has been quiescent. 6. Anxiety disorder. 7. Depression. 8. Dehydration. 9. PTSD. PLAN Consultation to Dr. Nixon has been initiated. Dr. Nixon will see patient today. Continue IV antibiotics, continue IV fluids at a lower rate, wean patient off IV Solu-Medrol and start on oral Prednisone. Continue other home medications. Have Inpatient Rehabilitation Unit evaluate patient for possible qualification for inpatient rehab for gait unsteadiness. BRANDON
--- NOTE | 2016-12-19 11:30 | PNF ---
DATE 12/19/2016 REFERRING PHYSICIAN Ash Saldaña MD PATIENT'S CHIEF COMPLAINT Headache and balance problem. HISTORY OF PRESENT ILLNESS The patient did better yesterday after the Depacon injection. She had recurrence of headache later in the evening but it was not as severe. She continues to have milder headache today. She was able to take a bath earlier today with some difficulties. She is still not feeling secure walking. She has had no new focal deficit. Her blood pressure has slightly improved. Her Solu-Medrol dosage was cut in half and will be titrated down gradually over time. PHYSICAL EXAMINATION On physical examination, there was no significant change compared to yesterday's exam. ASSESSMENT 1. Migrainous headache exacerbated by recent head injury. 2. Multifactorial balance and coordination problem. PLAN 1. Continue Solu-Medrol slow titration and eventually switch to prednisone oral medication on discharge. 2. Consider repeating the Depacon IV injection if headache becomes worse again. 3. Continue physical and occupational therapy and consider outpatient rehabilitation if patient continues to have difficulty standing and walking. SYEDD
[2016-12-19] MEDS: ALBUTEROL/IPRATROPIUM INHAL. 2.5mg-0.5mg/3ml Neb. AEROSOL SCH ×2 (11:37→19:26)
[2016-12-19] MEDS ORDERED: NORMAL SALINE IV ONE (15:00)
[2016-12-19] MEDS ORDERED: VALPROATE IV ONE (15:00)
[2016-12-19] MEDS: QUETIAPINE 25 MG TABLET PO PRN (17:07)
[2016-12-19] MEDS: AMLODIPINE 10 MG TABLET PO SCH (20:24)
[2016-12-19] MEDS: ASPIRIN *EC* 81mg TABLET PO SCH (20:37)
[2016-12-19] MEDS: QUETIAPINE 25 MG TABLET PO SCH (20:38)
[2016-12-20] MEDS: PANTOPRAZOLE 40 MG TABLET PO SCH (05:42)
[2016-12-20] MEDS: LEVOFLOXACIN 500 MG TABLET PO SCH (05:42)
[2016-12-20] MEDS: ALBUTEROL/IPRATROPIUM INHAL. 2.5mg-0.5mg/3ml Neb. AEROSOL SCH ×2 (07:01→21:00)
[2016-12-20 07:37] VITALS: BP 131/92; PULSE 80; RESP 18; TEMP 96.1; O2SAT 95
[2016-12-20] MEDS: ONDANSETRON 4mg/2ml INJECTION IV PRN ×3 (07:37→17:42)
[2016-12-20] MEDS: PHENAZOPYRIDINE 95 MG TABLET PO SCH ×2 (08:54→17:43)
[2016-12-20] MEDS: METHYLPHENIDATE 5 MG TABLET PO SCH ×2 (08:55→13:34)
[2016-12-20] MEDS: DULOXETINE 60 MG CAPSULE PO SCH (08:55)
[2016-12-20] MEDS: POTASSIUM CHLORIDE 20 MEQ TABLET PO SCH (08:55)
[2016-12-20] MEDS: LAMOTRIGINE 25 MG TABLET PO SCH (08:55)
[2016-12-20] MEDS: CycloSPORINE 0.05% Eye Drops 0.4ml DROPERETTE BOTH EYES SCH ×2 (08:55→21:43)
[2016-12-20] MEDS: LOSARTAN 50 MG TABLET PO SCH (08:55)
[2016-12-20] MEDS: LABETALOL 100 MG TABLET PO SCH ×2 (08:56→21:41)
[2016-12-20] MEDS: FLUTICASONE NASAL SPRAY 50 MCG EA NOSTRIL SCH ×2 (08:56→21:43)
[2016-12-20] MEDS: CLONAZEPAM 1 MG TABLET PO SCH ×2 (08:56→21:42)
[2016-12-20] MEDS: METFORMIN 1,000 MG TABLET PO SCH ×2 (09:02→17:43)
[2016-12-20] MEDS: AMLODIPINE 10 MG TABLET PO SCH (09:02)
[2016-12-20] MEDS: PredniSONE 10 MG TABLET PO SCH (09:02)
[2016-12-20] MEDS: SUMATRIPTAN 100 MG TABLET PO PRN (10:09)
[2016-12-20 15:34] VITALS: BP 158/98; PULSE 103; RESP 18; TEMP 99.5; O2SAT 94
--- NOTE | 2016-12-20 16:56 | PNF ---
DATE December 20, 2016 SUBJECTIVE Patient slept well. She seems to be happy today. PHYSICAL EXAM GENERAL: The patient looks comfortable and cheerful. VITAL SIGNS: Blood pressure this morning 131/92, pulse 80, temperature 96.1. Respirations 18. Oxygen saturation 95% on 1 L/nasal cannula. NECK: Supple. CHEST: Lungs are clear. CARDIOVASCULAR: Regular rate and rhythm. ABDOMEN: Soft. EXTREMITIES: No edema. NEUROLOGIC: Grossly intact. No focal neurologic deficit. ASSESSMENT 1. Migraine/tension headache. 2. Post-concussion syndrome. 3. Gait imbalance. 4. Frequent falls, improving. 5. Urinary tract infection due to Klebsiella pneumoniae. The patient is on oral antibiotics at this time. 6. SLE. This has been quiescent. 7. Anxiety disorder. 8. Depression. 9. Dehydration. 10. PTSD. 11.Hypoxia.......needing 1 L o2 /NC PLAN Continue regimen. Anticipate dismissal tomorrow. MTDD
[2016-12-20 20:00] VITALS: PULSE 103; RESP 18
[2016-12-20 21:01] VITALS: O2SAT 96
[2016-12-20] MEDS: QUETIAPINE 25 MG TABLET PO SCH (21:41)
[2016-12-20] MEDS: ASPIRIN *EC* 81mg TABLET PO SCH (21:42)
[2016-12-20] MEDS: QUETIAPINE 25 MG TABLET PO PRN (21:44)
[2016-12-21] VITALS (7 sets, daily range): BP systolic 107–139; BP diastolic 64–87; PULSE 68–105; RESP 18–20; TEMP 96.5–97.8; O2SAT 90–96
[2016-12-21] MEDS: PANTOPRAZOLE 40 MG TABLET PO SCH (06:54)
[2016-12-21] MEDS: LEVOFLOXACIN 500 MG TABLET PO SCH (06:54)
[2016-12-21] MEDS: PHENAZOPYRIDINE 95 MG TABLET PO SCH ×3 (08:31→17:34)
[2016-12-21] MEDS: METFORMIN 1,000 MG TABLET PO SCH ×2 (08:32→17:34)
[2016-12-21] MEDS: DULOXETINE 60 MG CAPSULE PO SCH (08:32)
[2016-12-21] MEDS: METHYLPHENIDATE 5 MG TABLET PO SCH ×2 (08:32→13:01)
[2016-12-21] MEDS: PredniSONE 10 MG TABLET PO SCH (08:32)
[2016-12-21] MEDS: CLONAZEPAM 1 MG TABLET PO SCH ×2 (08:32→21:10)
[2016-12-21] MEDS: POTASSIUM CHLORIDE 20 MEQ TABLET PO SCH (08:32)
[2016-12-21] MEDS: FLUTICASONE NASAL SPRAY 50 MCG EA NOSTRIL SCH ×2 (08:33→21:12)
[2016-12-21] MEDS: AMLODIPINE 10 MG TABLET PO SCH (08:33)
[2016-12-21] MEDS: LOSARTAN 50 MG TABLET PO SCH (08:33)
[2016-12-21] MEDS: LABETALOL 100 MG TABLET PO SCH ×2 (08:33→21:10)
[2016-12-21] MEDS: CycloSPORINE 0.05% Eye Drops 0.4ml DROPERETTE BOTH EYES SCH ×2 (08:33→21:12)
[2016-12-21] MEDS: LAMOTRIGINE 25 MG TABLET PO SCH (08:33)
[2016-12-21] MEDS: ALBUTEROL/IPRATROPIUM INHAL. 2.5mg-0.5mg/3ml Neb. AEROSOL SCH ×2 (08:43→18:14)
[2016-12-21] MEDS: ONDANSETRON 4mg/2ml INJECTION IV PRN ×3 (10:13→20:06)
--- NOTE | 2016-12-21 13:47 | PNF ---
DATE 12/21/2016 SUBJECTIVE "I slept well, I feel well rested. Plan is for physical therapy to help me and my with training for going up and down stairs. " OBJECTIVE VITAL SIGNS: Blood pressure 139/85 with a pulse of 72, temperature 96.5. Oxygen saturation 94% on 1 liter of oxygen by nasal cannula. GENERAL: She looks comfortable, in no distress. NECK: Supple. CHEST: Lungs are clear. CARDIOVASCULAR: Regular rate and rhythm. ABDOMEN: Soft. EXTREMITIES: No cyanosis, no clubbing, no edema. NEUROLOGIC: Exam grossly intact. ASSESSMENT 1. Migraine/tension headache, improved. 2. Post-concussion syndrome, resolving. 3. Gait imbalance, improving. 4. Frequent falls, improving. 5. Hypoxia.........Nocturnal oxygen required due to OXYGEN desaturation primarly at nights. 6. Klebsiella pneumoniae induced urinary tract infection. The patient is on appropriate antibiotics. 7. SLE. This has been quiescent. 8. Anxiety disorder, ongoing. 9. Depression, ongoing. 10. Dehydration, ongoing. 11. PTSD, ongoing. PLAN Physical therapist has talked to me this morning. The plan is for her to train patient and on how patient can go upstairs and downstairs without falling. Anticipate dismissal either tonight or tomorrow morning, based on physical therapy evaluation at this time. BRANDON
--- NOTE | 2016-12-21 16:14 | PNF ---
DATE 12/21/2016 REFERRING PHYSICIAN Ash Saldaña MD PATIENT'S CHIEF COMPLAINT Headache and balance problem. HISTORY OF PRESENT ILLNESS Patient continues to improve with her gait. Her headache responded well to the IV Depacon. This had to be given a second time due to increased stress and anxiety. At present time, the patient denies having any headache. She has been able to walk well with physical therapy. She will be discharged later home. ASSESSMENT AND PLAN 1. Migraine headache, improving with Depacon. The patient can resume her oral medication when she goes home. 2. Multifactorial gait and balance problem associated with history of lupus and arthritis. This has been improving with physical therapy. MTDD
[2016-12-21] MEDS: ASPIRIN *EC* 81mg TABLET PO SCH (21:10)
[2016-12-21] MEDS: QUETIAPINE 25 MG TABLET PO SCH (21:10)
[2016-12-22 00:22] VITALS: BP 102/57; PULSE 69; RESP 17; TEMP 96.5; O2SAT 95
[2016-12-22 01:00] VITALS: O2SAT 92
[2016-12-22 03:00] VITALS: O2SAT 93
[2016-12-22] MEDS: ONDANSETRON 4mg/2ml INJECTION IV PRN ×2 (06:14→11:55)
[2016-12-22] MEDS: PANTOPRAZOLE 40 MG TABLET PO SCH (06:48)
[2016-12-22] MEDS: LEVOFLOXACIN 500 MG TABLET PO SCH (06:49)
[2016-12-22 08:02] VITALS: BP 129/66; PULSE 73; RESP 18; TEMP 97.1; O2SAT 93
[2016-12-22 08:04] VITALS: PULSE 73; RESP 18
[2016-12-22 08:20] VITALS: O2SAT 95
[2016-12-22] MEDS: ALBUTEROL/IPRATROPIUM INHAL. 2.5mg-0.5mg/3ml Neb. AEROSOL SCH (08:26)
[2016-12-22] MEDS: DULOXETINE 60 MG CAPSULE PO SCH (08:49)
[2016-12-22] MEDS: LAMOTRIGINE 25 MG TABLET PO SCH (08:49)
[2016-12-22] MEDS: METFORMIN 1,000 MG TABLET PO SCH (08:49)
[2016-12-22] MEDS: AMLODIPINE 10 MG TABLET PO SCH (08:50)
[2016-12-22] MEDS: LABETALOL 100 MG TABLET PO SCH (08:50)
[2016-12-22] MEDS: PHENAZOPYRIDINE 95 MG TABLET PO SCH ×2 (08:50→11:54)
[2016-12-22] MEDS: CLONAZEPAM 1 MG TABLET PO SCH (08:50)
[2016-12-22] MEDS: POTASSIUM CHLORIDE 20 MEQ TABLET PO SCH (08:51)
[2016-12-22] MEDS: LOSARTAN 50 MG TABLET PO SCH (08:51)
[2016-12-22] MEDS: PredniSONE 10 MG TABLET PO SCH (08:52)
[2016-12-22] MEDS: CycloSPORINE 0.05% Eye Drops 0.4ml DROPERETTE BOTH EYES SCH (08:53)
[2016-12-22] MEDS: FLUTICASONE NASAL SPRAY 50 MCG EA NOSTRIL SCH (08:53)
[2016-12-22] MEDS: METHYLPHENIDATE 5 MG TABLET PO SCH ×2 (08:53→13:00)
[2016-12-22] MEDS: SUMATRIPTAN 100 MG TABLET PO PRN (13:00)
[2016-12-22] MEDS ORDERED: LEVO500T63 PO (13:03)
[2016-12-22] MEDS ORDERED: AMLO10TA4 PO (13:06)
[2016-12-22] MEDS ORDERED: PRED10TA PO (13:39)
[2016-12-22] MEDS ORDERED: THYR15TA PO (14:14)
--- NOTE | 2016-12-23 10:28 | DSF ---
FINAL DIAGNOSES 1. Migraine/tension headache. 2. Frequent falls. 3. Gait imbalance. 4. Hypoxia, nocturnally. 5. Klebsiella pneumoniae-induced urinary tract infection. 6. Anxiety disorder. 7. Depression. 8. Dehydration, treated and resolved. 9. PTSD complex on treatment. 10. Postconcussion syndrome, responsible for some of the patient's current symptoms. 11. Systemic lupus erythematosus. This has been quiescent. Flare markers were essentially negative. CONSULT Ina Nixon MD, for management of recurrent headaches as well as frequent falls. REASON FOR ADMISSION Patient is a 41-year-old female who was brought to the office on the day of admission by her [id number]. Patient came in with a chief complaint of severe headache in the occipital region that may occasionally move to the front. She had been seen for a similar episode the day before this admission. She received Toradol IM, Demerol IM, promethazine IM, as well as dexamethasone injection. She got a little bit better. She came back to the office this morning with severe headache. She also noted that she fell last week. She has been seeing Dr. Ba, neurologist, in [place] for this. The patient is on outpatient physical therapy management ordered by Dr. Ba. Patient fell while in the office while she went to the bathroom. She hit her head on the wall of the bathroom. She did not lose consciousness at that time. PHYSICAL EXAMINATION GENERAL: Patient looks quite tearful throughout examination and seems confused at times. She does not remember what just happened in conversation with me and even with her in the room. She seemed quite emotional as well that day. LABORATORY DATA Lab on that day shows hemoglobin 11.2. Chemistry: Potassium 4.2, glucose 163. AST 73, ALT 100. This is better than previous laboratory the patient has done. TSH 0.14. HOSPITAL COURSE The patient was admitted to the general medical floor under the care of Dr. Ash Saldaña. Patient was admitted outpatient initially and then changed to inpatient due to persistent symptoms that were not resolving at that time. Patient was given different IV medications for migraine management. Dr. Nixon was consulted, who tried the patient on IV Depakote on two different occasions. This brought her headache down significantly. She fell in the hospital about two or three times while she was here. There was concern about safety at home. Physical Therapy was consulted. They worked with the patient throughout the hospitalization. Patient was evaluated by the Inpatient Rehabilitation Unit. The patient did not qualify for Inpatient Rehabilitation Unit for admission at this time. She also had issues with low oxygen at night plus nocturnal oximetry did show some desaturations. I repeated one the day before she was dismissed. It was inconclusive. Patient received IV fluids, IV steroids, and IV Depakote, as well as IV antibiotics. There was concern about urinary tract infection. She got Levaquin IV for about three days, and that was changed to oral Levaquin. The patient is medically stable now to be dismissed to home with home health nurse to follow. Patient is to follow up with me in 7 to 10 days. Follow up with Dr. Nixon in about a month or so or Dr. Ba, neurologist. DISCHARGE MEDICATIONS 1. Amlodipine (Norvasc) 10 mg one tablet daily. 2. Levaquin 500 mg one tablet daily for seven days. 3. Prednisone 10 mg two tablets daily for five days and then half tablet daily for five days. [address] Thyroid 50 mg one tablet daily. 5. Albuterol inhaler every 4 hours p.r.n. 6. Alprazolam 1 mg 4 times daily p.r.n. 7. Aspirin 81 mg one tablet at bedtime. 8. Azathioprine 50 mg two tablets p.o. twice daily. 9. Clonazepam 1 mg one tablet daily. 10. Clonazepam 1 mg two tablets at bedtime. 11. Cyclosporin eye drops one drop in both eyes every 12 hours. 12. Cymbalta 60 mg capsule daily. 13. Flonase nasal spray p.r.n. 14. Lortab 7.5/325 mg one tablet every 4 to 6 hours p.r.n. 15. Labetalol 200 mg one tablet p.o. twice daily. 16. Lamictal 25 mg two tablets daily. 17. Losartan potassium 50 mg one tablet daily. 18. Metformin 1000 mg one tablet p.o. b.i.d. with meals. 19. Reglan 20 mg one tablet p.o. twice daily. 20. Ritalin 20 mg one tablet p.o. twice daily. 21. Singulair 10 mg one tablet daily. 22. Zofran 4 mg one tablet every 4 to 6 hours p.r.n. 23. Protonix 40 mg one tablet p.o. twice daily. 24. Potassium chloride 40 mEq one tablet daily. 25. Seroquel 25 mg one tablet at bedtime. 26. Seroquel 25 mg one tablet every 6 hours p.r.n. anxiety. 27. Imitrex 100 mg one tablet p.o. p.r.n. headache. PLAN 1. Patient to see me in 7 to 10 days. 2. Patient will see Dr. Nixon in about a month or so. [facility]
== END 2016-12-22 15:52 | disposition home health service (06) | DRG 103 ==
LOC: MED 11:47
PROVIDERS: ADMIT Family Medicine; ATTEND Family Medicine
DX: G43.909 Migraine, unspecified, not intractable, without status migrainosus (principal); N39.0 Urinary tract infection, site not specified; F07.81 Postconcussional syndrome; Z91.81 History of falling; R26.81 Unsteadiness on feet; E86.0 Dehydration; R09.02 Hypoxemia; M32.9 Systemic lupus erythematosus, unspecified; K76.0 Fatty (change of) liver, not elsewhere classified; F43.10 Post-traumatic stress disorder, unspecified; F32.9 Major depressive disorder, single episode, unspecified; F41.9 Anxiety disorder, unspecified; B96.1 Klebsiella pneumoniae [K. pneumoniae] as the cause of diseases classified elsewhere; Z86.718 Personal history of other venous thrombosis and embolism
CPT/HCPCS: 36415; 36569; 80048; 80053; 81001; 82948; 84443; 85025; 85652; 86161; 86225; 87086; 94640; 94762

== ENCOUNTER 2017-07-24 11:19 | Observation (INO) ==
--- OUTSIDE RECORDS SUMMARY | 2017-07-24 12:13 | External Medical Summary ---
:1975 Author Organization [facility] Address [address] [place] [phone] Care Team Providers Name Role Phone SpencerJone Unavailable Unavailable PROBLEMS Type Condition ICD9-CM [id number] Onset Condition SNOMED Code Code Code Dates Status Problem Severe obesity E66.01 Active 284311054 (BMI >=40) Problem Current chronic Z79.52 Active 197726753230396 use of systemic steroids Problem Primary E03.9 Active 02604939 hypothyroidism Problem Low serum cortisol E27.40 Active 146330156 level Problem Other insomnia G47.09 Active 412250817 Problem PCOS (polycystic E28.2 Active 74405942 ovarian syndrome) ALLERGIES Unknown Allergies SOCIAL HISTORY No smoking Hx information available PLAN OF CARE VITAL SIGNS MEDICATIONS Unknown Medications RESULTS No Results PROCEDURES No Known procedures IMMUNIZATIONS No Known Immunizations
--- OUTSIDE RECORDS SUMMARY | 2017-07-24 12:13 | External Medical Summary ---
:1975 Author Organization [facility] Address [address] [phone] Care Team Providers Name Role Phone Jone Palmer Unavailable Unavailable PROBLEMS Type Condition ICD9-CM [id number] Onset Condition SNOMED Code Code Code Dates Status Problem Severe obesity E66.01 Active 124883040 (BMI >=40) Problem Current chronic Z79.52 Active 266794438219321 use of systemic steroids Problem Primary E03.9 Active 23154146 hypothyroidism Problem Low serum cortisol E27.40 Active 917506858 level Problem Other insomnia G47.09 Active 802213816 Problem PCOS (polycystic E28.2 Active 59727967 ovarian syndrome) ALLERGIES No Information SOCIAL HISTORY Never Assessed PLAN OF CARE VITAL SIGNS MEDICATIONS Unknown Medications RESULTS No Results PROCEDURES No Known procedures IMMUNIZATIONS No Known Immunizations MEDICAL (GENERAL) HISTORY Type Description Date Medical History Thyroid Disease Medical History Nephritis Medical History High Blood Pressure Medical History High Cholesterol Medical History Polycystic Ovarian Syndrome Medical History Systemic Lupus Surgical History partial hysterectomy 02/2013 Surgical History cholecystectomy Surgical History liver biopsy
--- OUTSIDE RECORDS SUMMARY | 2017-07-24 12:13 | External Medical Summary ---
:1975 Author Organization [facility] Address [address] [id number] Care Team Providers Name Role Phone Jone Palmer Unavailable Unavailable PROBLEMS Type Condition ICD9-CM [id number] Onset Condition SNOMED Code Code Code Dates Status Problem Current chronic Z79.52 Active 884637231072298 use of systemic steroids Problem Other insomnia G47.09 Active 119551799 Problem Low serum cortisol E27.40 Active 579918232 level Problem PCOS (polycystic E28.2 Active 45196719 ovarian syndrome) Problem Primary E03.9 Active 32313930 hypothyroidism ALLERGIES Unknown Allergies SOCIAL HISTORY No smoking Hx information available PLAN OF CARE VITAL SIGNS MEDICATIONS Unknown Medications RESULTS No Results PROCEDURES No Known procedures IMMUNIZATIONS No Known Immunizations
--- OUTSIDE RECORDS SUMMARY | 2017-07-24 12:13 | External Medical Summary ---
:1975 Author Organization [facility] Address [address] [phone] Care Team Providers Name Role Phone Jone Palmer Unavailable Unavailable PROBLEMS Type Condition ICD9-CM [id number]-GC Onset Condition SNOMED Code Code Code Dates Status Problem Current chronic Z79.52 Active 465274233790771 use of systemic steroids Problem Other insomnia G47.09 Active 009300920 Problem Low serum cortisol E27.40 Active 353407881 level Problem PCOS (polycystic E28.2 Active 29518007 ovarian syndrome) Problem Primary E03.9 Active 28400142 hypothyroidism ALLERGIES Unknown Allergies SOCIAL HISTORY No smoking Hx information available PLAN OF CARE VITAL SIGNS MEDICATIONS Unknown Medications RESULTS No Results PROCEDURES No Known procedures IMMUNIZATIONS No Known Immunizations
--- OUTSIDE RECORDS SUMMARY | 2017-07-24 12:13 | External Medical Summary ---
:1975 Author Organization [facility] Address [address] [phone] Care Team Providers Name Role Phone Jone Palmer Unavailable Unavailable PROBLEMS Type Condition ICD9-CM NQQ66-MA Onset Condition SNOMED Code Code Code Dates Status Problem Current chronic Z79.52 Active 619522056380544 use of systemic steroids Problem Other insomnia G47.09 Active 330054652 Problem Low serum cortisol E27.40 Active 606552248 level Problem PCOS (polycystic E28.2 Active 52705825 ovarian syndrome) Problem Primary E03.9 Active 35232828 hypothyroidism ALLERGIES Unknown Allergies SOCIAL HISTORY No smoking Hx information available PLAN OF CARE VITAL SIGNS MEDICATIONS Unknown Medications RESULTS No Results PROCEDURES No Known procedures IMMUNIZATIONS No Known Immunizations
--- OUTSIDE RECORDS SUMMARY | 2017-07-24 12:13 | External Medical Summary ---
:1975 Author Organization [facility] Address [address] [phone] Care Team Providers Name Role Phone Jone Palmer Unavailable Unavailable PROBLEMS Type Condition ICD9-CM [id number]-PG Onset Condition SNOMED Code Code Code Dates Status Problem Severe obesity E66.01 Active 321880364 (BMI >=40) Problem Current chronic Z79.52 Active 002817261522474 use of systemic steroids Problem Primary E03.9 Active 95087459 hypothyroidism Problem Low serum cortisol E27.40 Active 538219855 level Problem Other insomnia G47.09 Active 419271710 Problem PCOS (polycystic E28.2 Active 14276314 ovarian syndrome) ALLERGIES No Information SOCIAL HISTORY [...]
--- OUTSIDE RECORDS SUMMARY | 2017-07-24 12:13 | External Medical Summary ---
:1975 Author Organization [facility] Address [address] [id number] Care Team Providers Name Role Phone Jone Palmer Unavailable Unavailable PROBLEMS Type Condition ICD9-CM [id number]-FX Onset Condition SNOMED Code Code Code Dates Status Problem Current chronic Z79.52 Active 982536913867330 use of systemic steroids Problem Other insomnia G47.09 Active 127485835 Problem Low serum cortisol E27.40 Active 954386044 level Problem PCOS (polycystic E28.2 Active 02114335 ovarian syndrome) Problem Primary E03.9 Active 84343978 hypothyroidism ALLERGIES Unknown Allergies SOCIAL HISTORY No smoking Hx information available PLAN OF CARE VITAL SIGNS MEDICATIONS Unknown Medications RESULTS No Results PROCEDURES No Known procedures IMMUNIZATIONS No Known Immunizations
[2017-07-24 12:52] VITALS: BMI 47.3
[2017-07-24] MEDS ORDERED: VALPROATE IV 500 MG in NS 100 ML IV ONE (12:55)
[2017-07-24] MEDS ORDERED: KETOROLAC 15 MG/ML INJECTION IVP PRN (13:13)
[2017-07-24] MEDS: PROCHLORPERAZINE 10 MG/2 ML INJECTION IVP PRN ×2 (13:37→19:32)
--- NOTE | 2017-07-24 14:18 | CT Scan Report ---
Indication: intractable headache PROCEDURE: CT head/brain wo con: Encounter: Initial Comparison: Head CT dated May 11, 2017 Technique: Axial CT images through the head were performed without contrast. Iterative Reconstruction dose reducing technique was utilized. FINDINGS: The ventricles are of normal size, shape, and contour for the patient's age. The brainstem, cerebellum, and cerebral hemispheres have a normal morphology and CT attenuation. There is no evidence of midline displacement. No hemorrhage, signs of acute territorial stroke, mass effect, mass lesions, or edema is evident. The visualized portions of the skull base, midface, and calvarium demonstrate no abnormality. The paranasal sinuses are well aerated and free of significant disease. The tympanic and mastoid cavities appear normal. IMPRESSION: No acute intracranial abnormality or hemorrhage. Negative head CT. .
--- NOTE | 2017-07-24 14:51 | Consultation ---
DATE OF CONSULTATION 07/24/2017 REFERRING PHYSICIAN Ash Saldaña MD PATIENT'S CHIEF COMPLAINT Headache. HISTORY OF PRESENT ILLNESS Patient is a 42-year-old female with history of intractable migraine, lupus, and chronic daily headache. The patient has been complaining of severe headache for the past two weeks. She has been following with her primary care doctor, Dr. Saldaña who gave her several treatments including steroid, Demerol and other pain medication. The patient did not respond well to treatment so far. She continues to have severe headache which started on the left frontal area and then moved around her head to the occiput. She described having a sharp band around her head. The patient has been having some mild nausea and photophobia with the headache. She denies having any focal neurological deficit. Her headache has been severe and constant. The patient was admitted in December for similar problem and she did well on the IV Depakote. This can be done again this admission. The patient normally used Imitrex for acute headache and this has not helped her with the recent headache. She is not taking any preventative medication for migraine at the present time. The patient said that she had three attacks of shingles in the past few months and she has been getting Lyrica for that. PHYSICAL EXAMINATION On physical examination, the patient was awake, alert, oriented x3. Pupils were round, reactive and equal. Extraocular muscles were intact. Visual field was full. Speech was fluent. Motor examination was 5/5 in all extremities. Sensory examination was normal to light touch and pinprick. Deep tendon reflexes were 2/4. Coordination for [id number] were normal bilaterally. ASSESSMENT Intractable migraine headache with status migrainosus. PLAN 1. Start IV Depakote 500 mg infusion x1. This can be repeated in 24 hours if the headache does not subside. 2. Start patient on gabapentin 300 mg p.o. q.h.s. for chronic headache and headache prevention. 3. Consider Botox for chronic headache if patient's condition continues to progress over time. 4. Continue Imitrex for acute headache at home. This can be changed to ONZETRA which is a self-blowing medication in the nose. This can replace the oral medication if she had no good response to that. 5. Consider doing an MRI of the brain if patient has focal neurological deficit or coordination problem. [facility]
--- NOTE | 2017-07-24 15:05 | History and Physical ---
CHIEF COMPLAINT "Headache that will not go away." HPI The patient is a 42-year-old female who presented to the office this morning at my request to follow up because she was having a persistent headache. She was accompanied today to the office by Justino, her . This patient has a history of migraine headaches that we have been dealing with for several years. The last significant one was back in December 2016, requiring hospitalization. She was there for about a week actually with other medical problems associated with the headache. She was seen by Dr. Nixon in consultation at that time as well. Over the last one week the patient has been having this persistent headache which she described as throbbing (beating), pressure-like, in front of her head, back of her head sometimes, diffusely, and this is aggravated by presence of bright light or noise. This is associated with some nausea. There has been no vomiting per se. Her blood pressure also has gone up quite a bit since that time. We saw for this at the office last . She was treated with Solu-Medrol, Demerol, Zofran and Toradol as well. She got better for a few days. She came back yesterday because she had a horrible headache during the weekend. She also said she was having difficulty holding things down with some nausea but no vomiting, no diarrhea. She was worried about being dehydrated. Therefore we started her on IV fluids. She actually received 2 liters of normal saline here at the office yesterday. In addition, we also gave her Solu-Medrol 125 mg IM x 1, Demerol 75 mg IM x 1, Zofran 8 mg IM x 1, as well as Toradol 60 mg x 1. Those were all given yesterday. She thought she got better. She went home to sleep yesterday. She got better until this morning. At 3 o'clock this morning she had the same headache - just more magnified. She was about to go to the emergency room but she managed to hold on. She has taken two or three Imitrex since yesterday. That has not helped. She took ibuprofen. That has not helped either. Zofran is helpful for the nausea. She denies worst headache of her life. REVIEW OF SYSTEMS She denies any blurring vision nor worst headache of her life. No diplopia. No chest pain. No orthopnea. No PND. No leg swelling. No TIA or CVA symptoms. No fever. No chills. ALLERGIES Allergy list is pretty lengthy: Penicillin - causes hives, sulfa - causes hives , egg derivative - causes headache, adhesives, cephalexin, corn, milk, omeprazole - causes nausea/vomiting, soy, trimethoprim - rash, yeast, amoxicillin, wheat, chocolate, eggs, kiwi, strawberries, sulfa drugs. CODE STATUS Patient is a FULL CODE. PAST MEDICAL HISTORY 1. Migraine headaches. 2. Frequent falls. 3. Gait imbalance. 4. UTI. 5. Anxiety disorder. 6. Depression. 7. Dehydration. 8. PTSD complex. 9. Postconcussion syndrome. 10. SLE. 11. Multiple drug allergies. 12. Hypothyroidism. 13. Obesity. 14. Dyslipidemia. PAST SURGICAL HISTORY Not really relevant to this admission right now. FAMILY HISTORY Positive for hypertension, heart trouble, stroke, coronary artery disease and , and hypertension, diabetes. SOCIAL HISTORY The patient is with three children. She denied alcohol use or smoking. CURRENT MEDICATIONS 1. Aspirin 81 mg one tablet daily. 2. Cymbalta 120 mg daily. 3. Flonase 2 sprays in each nostril b.i.d. 4. [employer] 7.5/325 one tablet p.o. q. 6 hours. 5. Labetalol 200 mg p.o. b.i.d. 6. Lamictal 100 mg one tablet at bedtime. 7. Lamictal 25 mg two tablets in the morning. 8. Victoza subcutaneous daily. 9. Magnesium oxide 800 mg one tablet daily. 10. Metformin 500 mg p.o. t.i.d. 11. Singulair 10 mg one tablet daily. 12. Zofran p.o. t.i.d. 4 mg. 13. Norflex 100 mg p.o. b.i.d. 14. Potassium 40 mEq daily. 15. Prednisone 5 mg one tablet daily. 16. Lyrica 50 mg one tablet daily. 17. Protonix 40 mg one tablet p.o. b.i.d. 18. Sumatriptan 100 mg p.o. daily p.r.n. 19. [place] Thyroid 45 mg one tablet daily. 20. Xanax 1 mg up to t.i.d. p.r.n. 21. Zyrtec 10 mg one tablet daily p.r.n. REVIEW OF SYSTEMS As in HPI. PHYSICAL EXAMINATION GENERAL: Patient looks uncomfortable due to pain from headache. HEENT: Head is atraumatic. Funduscopic examination unremarkable. TMs are clear. NECK: Supple. No JVD. LUNGS: Clear to auscultation bilaterally. CARDIOVASCULAR: Regular rate and rhythm. ABDOMEN: Soft. Nontender. EXTREMITIES: No cyanosis, clubbing or edema. NEURO EXAM: Grossly intact. ASSESSMENT 1. Intractable migraine headache. 2. Nausea. 3. Anxiety disorder. 4. Depression. 5. PTSD complex. 6. SLE by history. 7. Hypothyroidism. 8. Hypertension. 9. Chronic pain syndrome. PLAN 1. Admit patient to [facility] for better migraine control with IV medication. 2. Neurologic consultation has been sent to Dr. Nixon who saw the patient along with me back in December 2016. 3. In the meantime we will try her on IV Toradol. 4. CT head will be done because of the persistence of headache. BRANDON
[2017-07-24] MEDS: METHYLPREDNISOLONE SOD SUCC 125mg/2ml INJECTION IVP SCH ×2 (15:21→22:05)
[2017-07-24] MEDS: GABAPENTIN 300 MG CAPSULE PO SCH ×2 (19:34→20:37)
[2017-07-24] MEDS ORDERED: ONDANSETRON 4 MG/2 ML INJECTION IVP PRN (23:21)
[2017-07-25] MEDS: PROCHLORPERAZINE 10 MG/2 ML INJECTION IVP PRN ×2 (06:49→12:12)
[2017-07-25 08:02] VITALS: BP 127/73; PULSE 77; RESP 16; TEMP 97.6; O2SAT 92
[2017-07-25] MEDS: METHYLPREDNISOLONE SOD SUCC 125mg/2ml INJECTION IVP SCH (08:21)
--- NOTE | 2017-07-25 13:02 | Discharge Instructions ---
Discharge Plan - Med Rec/Dispo Referrals/Follow Up: Ash Saldaña MD [Family Provider] - 1 Week Prescriptions: New Gabapentin [Neurontin] 300 mg PO HS #30 cap Continue ALPRAZolam [Alprazolam] 1 mg PO DAILY PRN #240 PRN Reason: Anxiety Magnesium Oxide [Magnesium] 800 mg PO DAILY Lamotrigine [Lamictal] 1 tab PO HS Cetirizine [Zyrtec] 10 mg PO DAILY SUMAtriptan TAB [Imitrex] 100 mg PO DAILY PRN PRN Reason: Migraine Headache Lamotrigine [Lamictal] 1 tab PO HS Pregabalin Cap [Lyrica] 75 mg PO HS Mycophenolate Mofetil 1,000 mg PO BID Nitrofurantoin Monohyd/M-Cryst [Macrobid 100 mg Capsule] 100 mg PO TID PRN PRN Reason: UTI Orphenadrine Tab [Norflex] 100 mg PO BID PRN PRN Reason: Spasms Aspirin [Adult Low Dose Aspirin EC] 81 mg PO HS Lamotrigine [LaMICtal] 50 mg PO DAILY Victoza Oxymetazoline HCl [Nasal [place]] 30 ml NS BID Methylphenidate 40 mg DAILY PRN PRN Reason: Depression Cymbalta (duloxetine) 60 mg capsule,delayed release 120 mg PO DAILY cap Lamictal (lamotrigine) 25 mg tablet 50 mg PO DAILY tab thyroid (pork) 15 mg tablet 45 mg PO DAILY tab Singulair (montelukast) 10 mg tablet 10 mg PO DAILY #30 tab [place] 7.5 mg-acetaminophen 325 mg tablet 1 tab PO Q6H PRN #60 tab PRN Reason: Pain Flonase (Fluticasone) 50 mcg nasal spray 2 spray EA NOSTRIL BID #1 each K-Tab (potassium chloride ER) 20 mEq tablet 40 meq PO DAILY #60 tab Protonix (Pantoprazole)40 mg tablet,delayed release 40 mg PO ACBID #60 tab labetalol 200 mg tablet See Label Instructions PO BID #60 tab prednisone 5 mg tablet 5 mg PO DAILY #30 tab ondansetron HCl 4 mg tablet 4 mg PO TID PRN #20 tab PRN Reason: nausea and vomiting Glucophage (metformin) 500 mg tablet 500 mg PO TID tab - Disposition 01 Discharged Home, Self-Care
--- NOTE | 2017-07-25 13:09 | Discharge Instructions ---
Discharge Plan - Med Rec/Dispo Referrals/Follow Up: Ash Saldaña MD [Family Provider] - 1 Week Prescriptions: New Gabapentin [Neurontin] 300 mg PO HS #30 cap Continue ALPRAZolam [Alprazolam] 1 mg PO DAILY PRN #240 PRN Reason: Anxiety Magnesium Oxide [Magnesium] 800 mg PO DAILY Lamotrigine [Lamictal] 1 tab PO HS Cetirizine [Zyrtec] 10 mg PO DAILY SUMAtriptan TAB [Imitrex] 100 mg PO DAILY PRN PRN Reason: Migraine Headache Lamotrigine [Lamictal] 1 tab PO HS Pregabalin Cap [Lyrica] 75 mg PO HS Mycophenolate Mofetil 1,000 mg PO BID Nitrofurantoin Monohyd/M-Cryst [Macrobid 100 mg Capsule] 100 mg PO TID PRN PRN Reason: UTI Orphenadrine Tab [Norflex] 100 mg PO BID PRN PRN Reason: Spasms Aspirin [Adult Low Dose Aspirin EC] 81 mg PO HS Lamotrigine [LaMICtal] 50 mg PO DAILY Victoza Oxymetazoline HCl [Nasal [place]] 30 ml NS BID Methylphenidate 40 mg DAILY PRN PRN Reason: Depression Cymbalta (duloxetine) 60 mg capsule,delayed release 120 mg PO DAILY cap Lamictal (lamotrigine) 25 mg tablet 50 mg PO DAILY tab thyroid (pork) 15 mg tablet 45 mg PO DAILY tab Singulair (montelukast) 10 mg tablet 10 mg PO DAILY #30 tab [place] 7.5 mg-acetaminophen 325 mg tablet 1 tab PO Q6H PRN #60 tab PRN Reason: Pain Flonase (Fluticasone) 50 mcg nasal spray 2 spray EA NOSTRIL BID #1 each K-Tab (potassium chloride ER) 20 mEq tablet 40 meq PO DAILY #60 tab Protonix (Pantoprazole)40 mg tablet,delayed release 40 mg PO ACBID #60 tab labetalol 200 mg tablet See Label Instructions PO BID #60 tab prednisone 5 mg tablet 5 mg PO DAILY #30 tab ondansetron HCl 4 mg tablet 4 mg PO TID PRN #20 tab PRN Reason: nausea and vomiting Glucophage (metformin) 500 mg tablet 500 mg PO TID tab Discharge Instructions/Outpatient Orders: Provider Discharge Instructions Location: Determined By Patient - Disposition 01 Discharged Home, Self-Care
--- NOTE | 2017-07-25 14:19 | Progress Note ---
DATE 07/25/[address] Saldaña PATIENT'S CHIEF COMPLAINT Headache. HISTORY OF PRESENT ILLNESS The patient has done much better on the Depakote IV. Her headache has been sided since then. She also tolerated the gabapentin well at night and this has helped her sleep. The patient has no significant headache today. She is going to go home. The patient had no other neurological problem and exam is normal. ASSESSMENT 1. Status migrainosus responding well to Depakote IV. 2. Chronic daily headache associated with migraine. PLAN 1. Continue gabapentin 300 mg p.o. q.h.s. for chronic daily headache and migraine prevention. 2. Continue home medications. 3. The patient may follow up with Dr. Nixon within a month. [place]
== END 2017-07-25 16:00 | disposition home or self-care (01) ==
LOC: MED
PROVIDERS: ADMIT Family Medicine; ATTEND Family Medicine